=== PATIENT | female | born 1950 | race Caucasian/White ===

== ENCOUNTER 2017-02-25 12:22 | Inpatient (IN) | payer MEDICARE ==
[~2017-02-25] VITALS: Ht 160 cm; Wt 73.0 kg
[~2017-02-25 12:22] MED LIST: ALBU18HF INH; ALLO300T2 PO; AMLO5TAB2 PO; ASCO500C6 PO; ATEN25TA PO; CALC-140 PO; CHOL200047 PO; DICY10CA56 PO; LOVA40TA PO; MAGN400T4 PO; OMEP20CA11 PO; RALO60TA13 PO
[2017-02-25 12:37] VITALS: BP 101/62; PULSE 95; RESP 12; O2SAT 97
--- NOTE | 2017-02-25 12:50 | ED.REPORT ---
HPI-General Illness Date of Service Feb 25, 2017 ED Provider: History of Present Illness: 66yo female with 3 weeks of nausea, intermittent vomitiong/diarrhea, occasional GUERRA and generalized malaise. Occasional fever. She reports she was diagnosed with Novavirus last week at her PCP's office (Dr. Mcconnell in [place]) after stool studies. Treated conservatively. Good PO intake. She is tired of feeling poorly. Nursing Notes Stated Complaint: HEADACHE/FEVER/NAUSEA X 1 WK Chief Complaint: General Complaint Nursing Notes Reviewed: Yes Allergies: Coded Allergies: TAPE (Verified Allergy, Severe, RASH (PAPER OK), 05/15/16) Sulfa (Sulfonamide Antibiotics) (Verified Allergy, Unknown, Rash, 05/15/16) Scheduled Allopurinol (Allopurinol) 300 Mg Tablet 150 MG PO DAILY Amlodipine (Amlodipine) 5 Mg Tablet 5 MG PO DAILY Ascorbic Acid (Vitamin C) 500 Mg Capsule.er 500 MG PO DAILY Atenolol (Atenolol) 25 Mg Tablet 12.5 MG PO DAILY Calcium Carbonate/Vitamin D3 (Calcium + Vitamin D Tablet) 1 Each Tablet 2 EACH PO DAILY Cholecalciferol (Vitamin D3) (Vitamin D3) 2,000 Unit Capsule 6,000 UNIT PO DAILY Dicyclomine (Bentyl) 10 Mg Capsule 10 MG PO TID Lovastatin (Lovastatin) 40 Mg Tablet 40 MG PO DAILY Magnesium Oxide (Magnesium Oxide) 400 Mg Tablet 400 MG PO DAILY Omeprazole (Omeprazole) 20 Mg Capsule.dr 20 MG PO DAILY Raloxifene (Raloxifene) 60 Mg Tablet 60 MG PO DAILY Scheduled PRN Albuterol Sulfate (Ventolin HFA Inhaler) 200 Puff/18 Gm Inhaler 1-2 PUFFS INH Q4H PRN PRN For Wheezing General Time Seen by MD: 12:49 Chief Complaint Fever, Headache, Not feeling well Hx Obtained From: Patient Arrived By: Walk-in Sudden in Onset?: Yes Onset Occurred: More than a week ago... (3 weeks) Symptom Duration: Waxes and wanes Severity: Current: No pain currently Severity: Maximum: No pain Associated with: Reports: Fever, Headache, Nausea, Vomiting, Denies: Abdominal pain Recent Healthcare: Recent doctor visit, Previous diagnosis Similar Sx Previous: No Past Medical History Past Medical History Hyperkalemia frequent episodes of diarrhea Reports: GERD, Hypertension Smoking History Former Smoker Social History Alcohol Use: "Social" Drug Use: Denies drug use Ambulatory Status Independent Review of Systems Full Review of Systems Constitutional: Reports: Fever, Denies: Chills Cardiovascular: Denies: Chest pain GI: Reports: Diarrhea, Nausea, Vomiting, Denies: Abdominal pain Female: Denies: Dysuria Musculoskeletal: Denies: Back pain, Neck pain Neurologic: Reports: Headache Physical Exam Vital Signs Vital Signs Date Time Temp Pulse Resp B/P Pulse Ox O2 Delivery O2 Flow Rate FiO2 02/25/17 19:48 36.0 74 16 130/68 99 Room Air 02/25/17 16:21 36.1 71 16 111/70 95 Room Air 02/25/17 12:37 36.6 95 12 101/62 97 Room Air Initial VS: Vital signs normal General/Constitutional: Awake, Alert, No acute distress, Well hydrated, Not toxic appearing ENT: Mucous membranes moist, Pharynx NL Neck: Supple, No adenopathy Respiratory / Chest: Breath sounds NL, Breath sounds = bilat, No respiratory distress Cardiovascular: Heart rate NL, Regular rhythm, Heart sounds NL Abdomen: Soft, Non-tender, No guarding, No rebound, No distention (to my exam) Interpretation & Diagnostics Lab Results Interpretation Result Diagram: 02/25/17 1340 02/25/17 1340 Test 02/25/17 13:40 02/25/17 15:54 02/25/17 16:21 02/25/17 21:25 White Blood Count 12.7th/mm3 (3.8-10.1) Red Blood Count 3.96mil/mm3 (3.90-5.20) Hemoglobin 12.5g/dL (12.0-15.6) Hematocrit 36.5% (35.0-46.0) Mean Corpuscular Volume 92.2fL (81-100) Mean Corpuscular Hemoglobin 31.6pg (27.0-35.0) Mean Corpuscular Hemoglobin Concent 34.2% (32.0-37.0) Red Cell Distribution Width 13.3% (12.3-15.4) Platelet Count 176bil/L (150-400) Neutrophils (%) (Auto) 82.8% (40-74) Lymphocytes (%) (Auto) 8.2% (14-46) Monocytes (%) (Auto) 8.4% (4-12) Eosinophils (%) (Auto) 0.2% (0-5) Basophils (%) (Auto) 0.2% (0-3) Sodium Level 132mEq/L (134-144) Potassium Level 3.6mEq/L (3.5-5.2) Chloride Level 100mEq/L (97-108) Carbon Dioxide Level 15mmol/L (18-29) Blood Urea Nitrogen 39mg/dL (8-27) Creatinine 1.76mg/dL (0.57-1.00) Estimat Glomerular Filtration Rate 41mL/min (>59) Glucose Level 134mg/dL (60-99) Calcium Level 8.0mg/dL (8.5-10.1) Phosphorus Level 2.3mg/dL (2.5-4.9) Magnesium Level 1.5mg/dL (1.6-2.6) Total Bilirubin 0.7mg/dL (0.0-1.2) Aspartate Amino Transf (AST/SGOT) 40U/L (0-50) Alanine Aminotransferase (ALT/SGPT) 15U/L (0-32) Alkaline Phosphatase 123U/L (25-165) Total Protein 6.9g/dL (6.4-8.4) Albumin 3.3g/dL (3.4-5.0) Procalcitonin 8.05ng/mL (0.00-0.08) Hold Urine Received (Received) Urine Color Yellow (YELLOW) Urine Appearance Hazy (CLEAR,HAZY) Urine pH 5.5 (5.0-8.0) Urine Specific [place] 1.005 (1.003-1.035) Urine Protein 30mg/dL (NEG,TRACE) Urine Glucose (UA) Negativemg/dL (NEGATIVE) Urine Ketones Negativemg/dL (NEGATIVE) Urine Occult Blood Moderate (NEGATIVE) Urine Nitrite Negative (NEGATIVE) Urine Bilirubin Negative (NEGATIVE) Urine Urobilinogen Normalmg/dL (NORMAL) Urine Leukocyte Esterase Small (NEGATIVE) Urine RBC 3-10/hpf (0-2) Urine WBC 6-10/hpf (0-5) Urine Epithelial Cells Moderate/hpf (NONE-MOD) Urine Crystals None seen (NONE SEEN) Urine Bacteria Moderate/hpf (NONE-FEW) Urine Hyaline Casts None/lpf (NONE) Urine Granular Casts None seen (NONE SEEN) Urine Waxy Casts None seen (NONE SEEN) Urine Red Blood Cell Casts None seen (NONE SEEN) Urine White Blood Cell Casts None seen (NONE SEEN) Urine Mucus None seen (None Seen) Urine Trichomonas None seen (NONE SEEN) Urine Yeast None (NONE SEEN) Urinalysis Comment None Urine Culture Reflexed Indicated Lactic Acid Level 1.0mmol/L (0.4-2.0) CT Abd / Pelvis Interpretation PROCEDURE: CT ABDOMEN AND PELVIS WITHOUT CONTRAST ([id number]) INDICATIONS: r/o ischemic bowel. TECHNIQUE: Noncontrast 5 mm thick sections acquired from the diaphragms to the symphysis. 5 mm coronal and sagittal reformats were then performed. For radiation dose reduction, the following was used: automated exposure control, adjustment of mA and/or kV according to patient size. COMPARISON: [facility], CT, ABDOMEN/PELVIS WITH CONTRAST, 07/05/2016, 13:16. FINDINGS: Image quality: Somewhat limited by absence of oral and intravenous contrast. ABDOMEN: Lung bases: Lung bases are clear. Heart size is normal. Solid organs: Liver and spleen are normal in size of the liver margins appear slightly nodular, potentially a manifestation of early cirrhosis. There is perihepatic ascites, mild to in severity. Gallbladder has a small amount of adjacent free fluid. Pancreas is normal in contours. No adrenal nodules. Kidneys are normal in size, without hydronephrosis or nephrolithiasis. Peritoneum and bowel: Unenhanced bowel loops demonstrate normal wall thickness and caliber. No free fluid or air. Nodes and vessels: No retroperitoneal or mesenteric adenopathy by size criteria. Aorta and inferior vena cava are normal in caliber. Miscellaneous: No ventral hernias. PELVIS: Genitourinary: Bladder wall thickness is normal. Miscellaneous: No inguinal hernias or adenopathy. Mild ascites is seen deep within the pelvis. No varices are found. Bones: No suspicious bony lesions. No vertebral body compression fractures. IMPRESSION: There is no bowel wall thickening or evidence of pneumatosis, no sign of intestinal obstruction or perforation. Note is made of a mild to moderate degree of ascites within the peritoneal space but no free air. Cirrhosis may be present as cause of subtle nodularity along the hepatic capsule or margin. Note is made of a small amount of free fluid within the gallbladder fossa, but the gallbladder itself does not appear definitely inflamed. No calcified gallstones are seen. There is a previously present cyst exophytic from the middle third of the left kidney posterolateral cortex, measuring 1.5 cm in dimension and measuring higher than water in density. This structure was previously present and appears even slightly smaller than on the prior examination. It could be further assessed by ultrasound when symptoms have improved. It likely is a proteinaceous cyst given its radiodensity and diminished size over time. Dictated by: Steven Hernández M.D. on 02/25/2017 at 20:15 Approved by: Steven Hernández M.D. on 02/25/2017 at 20:20 Re-Eval/Medical Decision Med Decision/Clinical Course Pt. discussed with Dr. Root who advised [place] lab results to confirm Norovirus dx. and then consult with Dr. Merchant. Lab results received, confirming Norovirus on 02/15. Dr. Merchant advises stool PCR and abdominal CT. CT showed ascites. case discussed with Dr. Christopher who advised admission for diarrhea, ascites, and dehydration. Dr. Alina Pickard accepted Pt. to her service Counseled Regarding: Diagnosis, Lab results, Need for admission Discharge & Departure Primary Impression: Diarrhea Diarrhea type: unspecified type Qualified Code: R19.7 - Diarrhea, unspecified Additional Impressions: Ascites Ascites type: other type Qualified Code: R18.8 - Other ascites Dehydration Disposition: ADMITTED TO HOSPITAL Referrals: Saadia Rizo DO (PCP) EDSupervising Provider for APC: Toby Christopher MD Attending Statement Case was discussed in detail and I personally examined this patient. Agree with above. Oral Gandara Feb 25, 2017 12:50 Toby Christopher MD Feb 25, 2017 23:18
[2017-02-25] MEDS ORDERED: Ondansetron 2 mg/mL 2 mL Inj IVPUSH ONE (12:55)
[2017-02-25] MEDS ORDERED: 0.9% Sodium Chloride 1,000 ML IV SCH ×2 (12:55→14:55)
[2017-02-25 13:53] LABS: BASOPHILS % (AUTO) 0.2 % (0-3); EOSINOPHILS % (AUTO) 0.2 % (0-5); MONOCYTES % (AUTO) 8.4 % (4-12); Mean Corpuscular Hemoglobin 31.6 pg (27.0-35.0); Mean Corpuscular Volume 92.2 fL (81-100); NEUTROPHILS % (AUTO) 82.8 % (40-74); Platelet Count 176 bil/L (150-400)
[2017-02-25 16:21] VITALS: BP 111/70; PULSE 71; RESP 16; O2SAT 95
[2017-02-25 16:38] LABS: APPEARANCE,URINE HAZY (CLEAR,HAZY); COLOR,URINE YELLOW (YELLOW); OCCULT BLOOD,URINE MODERATE (NEGATIVE); PH,URINE 5.5 (5.0-8.0); UROBILINOGEN,URINE NORMAL (NORMAL)
[2017-02-25 19:48] VITALS: BP 130/68; PULSE 74; RESP 16; O2SAT 99
--- NOTE | 2017-02-25 20:21 | DRSVH ---
PROCEDURE: CT ABDOMEN AND PELVIS WITHOUT CONTRAST ([id number]) INDICATIONS: r/o ischemic bowel. TECHNIQUE: Noncontrast 5 mm thick sections acquired from the diaphragms to the symphysis. 5 mm coronal and sagi ttal reformats were then performed. For radiation dose reduction, the following was used: automated exposure control, adjustment of mA and/or kV according to patient size. COMPARISON: [facility], CT, ABDOMEN/PELVIS WITH CONTRAST, 07/05/2016, 13:16. FINDINGS: Image quality: Somewhat limited by absence of oral and intravenous contrast. ABDOMEN: Lung bases: Lung bases are clear. Heart size is normal. Solid organs: Liver and spleen are normal in size of the liver margins appear slightly nodular, pote ntially a manifestation of early cirrhosis. There is perihepatic ascites, mild to in severity. Gall bladder has a small amount of adjacent free fluid. Pancreas is normal in contours. No adrenal nodul es. Kidneys are normal in size, without hydronephrosis or nephrolithiasis. Peritoneum and bowel: Unenhanced bowel loops demonstrate normal wall thickness and caliber. No free fluid or air. Nodes and vessels: No retroperitoneal or mesenteric adenopathy by size criteria. Aorta and inferior vena cava are normal in caliber. Miscellaneous: No ventral hernias. PELVIS: Genitourinary: Bladder wall thickness is normal. Miscellaneous: No inguinal hernias or adenopathy. Mild ascites is seen deep within the pelvis. No varices are found. Bones: No suspicious bony lesions. No vertebral body compression fractures. IMPRESSION: There is no bowel wall thickening or evidence of pneumatosis, no sign of intestinal obst ruction or perforation. Note is made of a mild to moderate degree of ascites within the peritoneal s pace but no free air. Cirrhosis may be present as cause of subtle nodularity along the hepatic capsu le or margin. Note is made of a small amount of free fluid within the gallbladder fossa, but the gallbladder itself does not appear definitely inflamed. No calcified gallstones are seen. There is a previously present cyst exophytic from the middle third of the left kidney posterolateral cortex, measuring 1.5 cm in dimension and measuring higher than water in density. This structure was previously present and appears even slightly smaller than on the prior examination. It could be fur ther assessed by ultrasound when symptoms have improved. It likely is a proteinaceous cyst given its radiodensity and diminished size over time. Dictated by: Steven Hernández M.D. on 02/25/2017 at 20:15 Approved by: Steven Hernández M.D. on 02/25/2017 at 20:20
--- NOTE | 2017-02-25 21:36 | PCM.HPMED ---
Subjective Date of Service Feb 25, 2017 Primary Provider: Admitting Physician: Alina Pickard DO Primary Care Physician: Saadia Rizo DO Attending Physician: Alina Pickard DO Admit Status: From the Emergency Department Chief Complaint: Diarrhea onset February 01. Nausea, vomiting, headaches, fever onset 5 days ago History of Present Illness: She is a pleasant 66y/o F with history of watery clear diarrhea onset February 01 that has persisted till now although reportedly slowing somewhat, with associated intermittent fevers, ache, nausea, and vomitiong clear fluid onset 5 days ago. Patient states that she last vomited about 2 days ago. She states she started spiking fevers around Tuesday of this week and reports 102 fever intermittently since then. The last meal she had was Tuesday consisting of [place] noodles which she was unable to tolerate area and she states she is able to tolerate water only when taken in small amounts. Associated symptoms include chills for the last couple days and rigors, as well as body aches. Patient was diagnosed by her PCP Dr. Mcconnell with [place] virus and this was confirmed by the [facility] labs. Patient states that she is feeling somewhat better since Tuesday of this week however her diarrhea and he needs to cause her distress. She she complains of a raw burning sensation of the rectum from the endless diarrhea. Of note patient has a history of 8 months of diarrhea however that was attributed to her magnesium supplementation which was stopped. After that her diarrhea had resolved. Patient states she no longer takes magnesium. Patient is a retired [employer] employee and lives alone with no family other than an estranged sister who she has no contact with. In the ED patient received 1 L bolus of saline, and maintenance fluids at 250 mL per hour with improvement in patient's blood pressure. Abdominopelvic CT with contrast showed: No bowel wall thickening or evidence of pneumatosis, no sign of intestinal obstruction or perforation. Mild to moderate degree of ascites within the peritoneal space but no free air. Cirrhosis may be present as cause of subtle nodularity along the hepatic capsule or margin. Note is made of a small amount of free fluid within the gallbladder fossa, but the gallbladder itself does not appear definitely inflamed. No calcified gallstones are seen. Stool PCR ordered and pending Initial Vital signs: temperature 36.6, pulse 95, respiratory rate 12, blood pressure 101/62, 97% on room air. Hemogram was significant for a leukocytosis with WBC 12.7, PMNs 82.8%, lymphs 8.2 percent, H/H was 12.5/36.5. Chemistry panel significant for hyponatremia at 132, CO2 15, BUN 39, creatinine 1.76, glucose 134, calcium 8.0, UA was significant for moderate bacteria and 6-10 white blood cells Urine culture pending Review of Systems: A comprehensive review of systems was conducted and was negative except as mentioned in history of present illness. Allergies Coded Allergies: TAPE (Verified Allergy, Severe, RASH (PAPER [place]), 05/15/16) Sulfa (Sulfonamide Antibiotics) (Verified Allergy, Unknown, Rash, 05/15/16) Home Medications Allopurinol (Allopurinol) 300 Mg Tablet 150 MG PO DAILY Amlodipine (Amlodipine) 5 Mg Tablet 5 MG PO DAILY Atenolol (Atenolol) 25 Mg Tablet 12.5 MG PO DAILY Lovastatin (Lovastatin) 40 Mg Tablet 40 MG PO DAILY Prolia PRN Albuterol Sulfate (Ventolin HFA Inhaler) 200 Puff/18 Gm Inhaler 1-2 PUFFS INH Q4H PRN PRN For Wheezing PMH History of Hyperkalemia History of frequent episodes of diarrhea lasted 8 months, and was found to be secondary to supplemental magnesium. Patient's magnesium was stopped and the diarrhea ceased. GERD, resolved Hypertension Gout Osteoporosis on Prolia Dyslipidemia Surgical History Denies surgical history Family History Mother with hypertension, diabetes, and stroke. Sister with history of diabetes Social History Hx Alcohol Use: No Hx Substance Use: No Hx Tobacco Use: No Smoking Status: Former Smoker (smoked half a pack a day for approximately 50 years) Living Arrangement: Alone Exam Vital Signs Vital Sign - Last Date Time Temp Pulse Resp B/P Pulse Ox O2 Delivery O2 Flow Rate FiO2 02/25/17 19:48 36.0 74 16 130/68 99 Room Air Exam General: Alert and oriented 3, in no apparent distress, requesting something to slow down her diarrhea, beginning in full sentences, HEENT: NC/AT, eyes, PERRLA, EOMI, neck, soft supple, no adenopathy, no JVD, no masses, no thyromegaly, throat mucous membranes pink and moist, no erythema, no exudates, no tonsillar swelling, no uvular deviation, tongue stained with dark brown substance. Lungs: CTAB all estes, no wheezes, no rhonchi, no crackles, no adventitious lung sounds, no use of accessory muscles of respiration, good air movement, good respiratory effort. Heart: Regular rate and rhythm, no murmur, S1-S2 present, no rub, no click, no distant heart sounds, GI: Soft, nontender, nondistended, bowel sounds active, no rebound, no guarding, Genitourinary: No CVA tenderness, no suprapubic tenderness, no Guo catheter Extremities: Pulses equal and symmetric upper extremity radial, no edema Neurologic: Grossly neurologically intact, speaking in full sentences, no focal neurological signs. Skin: Nondiaphoretic, dry, mild tenting present, refill less than 2 seconds Psychiatric: mood and affect are congruent and appropriate. Lymph: no cervical or supraclavicular lymphadenopathy Lab and Diagnostics Result Diagram: 02/25/17 1340 02/25/17 1340 X-Rays, CTs and MRIs Date of Service: 02/25/171918 PROCEDURE: CT ABDOMEN AND PELVIS WITHOUT CONTRAST INDICATIONS: r/o ischemic bowel. FINDINGS: Image quality: Somewhat limited by absence of oral and intravenous contrast. ABDOMEN: Lung bases: Lung bases are clear. Heart size is normal. Solid organs: Liver and spleen are normal in size of the liver margins appear slightly nodular, potentially a manifestation of early cirrhosis. There is perihepatic ascites, mild to in severity. Gallbladder has a small amount of adjacent free fluid. Pancreas is normal in contours. No adrenal nodules. Kidneys are normal in size, without hydronephrosis or nephrolithiasis. Peritoneum and bowel: Unenhanced bowel loops demonstrate normal wall thickness and caliber. No free fluid or air. Nodes and vessels: No retroperitoneal or mesenteric adenopathy by size criteria. Aorta and inferior vena cava are normal in caliber. Miscellaneous: No ventral hernias. PELVIS: Genitourinary: Bladder wall thickness is normal. Miscellaneous: No inguinal hernias or adenopathy. Mild ascites is seen deep within the pelvis. No varices are found. Bones: No suspicious bony lesions. No vertebral body compression fractures. IMPRESSION: There is no bowel wall thickening or evidence of pneumatosis, no sign of intestinal obstruction or perforation. Note is made of a mild to moderate degree of ascites within the peritoneal space but no free air. Cirrhosis may be present as cause of subtle nodularity along the hepatic capsule or margin. Note is made of a small amount of free fluid within the gallbladder fossa, but the gallbladder itself does not appear definitely inflamed. No calcified gallstones are seen. There is a previously present cyst exophytic from the middle third of the left kidney posterolateral cortex, measuring 1.5 cm in dimension and measuring higher than water in density. This structure was previously present and appears even slightly smaller than on the prior examination. It could be further assessed by ultrasound when symptoms have improved. It likely is a proteinaceous cyst given its radiodensity and diminished size over time. Dictated by: Steven Hernández M.D. on 02/25/2017 at 20:15 Approved by: Steven Hernández M.D. on 02/25/2017 at 20:20 Assessment & Plan This is a pleasant 66-year-old female with past medical history of hypertension , hyperlipidemia, and gout who presented to the ED with 1 month history of persistent watery diarrhea, and now one-week history of fevers, chills, rigors, nausea and vomiting clear fluid. Patient tested positive for [place] and was treated conservatively by her PCP. Patient was admitted to the hospital secondary to dehydration and persistent diarrhea. #Acute viral enteritis, present on admission, active -[place] virus confirmed by [facility] lab -Initial Vital signs: temperature 36.6, pulse 95, respiratory rate 12, blood pressure 101/62, 97% on room air. -leukocytosis with WBC 12.7, PMNs 82.8%, lymphs 8.2 percent, H/H was 12.5/36.5. -She states she was diagnosed with [place] virus in her PCPs clinic -Infectious disease consulted by the ED, [facility] aware of the patient and recommend stool PCR, and abdominal CT's contrast. -Abdominal pelvic CT with contrast with no evidence of bowel ischemia or perforation. Left kidney exophytic cyst previously seen on prior CT (reviewed on admission by admitting team). -Stool PCR ordered and pending -We will continue IV replacement fluids normal saline started and ED and monitor electrolytes appropriately. -We will order a stool C. difficile -MRSA screen -Pro calcitonin -Enteric precautions -We will wait to start antibiotics given likely viral source -We will avoid antimotility agents for now given patient reports she has been febrile, and out of concern that this may lengthen the infectious disease process -Racecadotril, an enkephalinase inhibitor used to treat diarrhea is not available on hospital formulary per pharmacy. Will hold of pursuing a medication such as this until further workup is completed #Acute kidney injury, present on admission, active - Creatinine elevated at 1.76 - Baseline creatinine 1.27 in April 2016 #Sepsis, acutem POA -WBC>12, HR >90 -secondary to gastroenteritis and dehydration -treatment as above # Dehydration, present on admission, active -Secondary to problem #1 above - Patient received 2 L of normal saline in the ED - We will continue to provide maintenance fluids normal saline at 100 mL per hour # Acute leukocytosis, present on admission, active -Wbc's 12.7 with left shift -Infectious disease Dr. [facility] has been consulted on this patient -UA was significant for moderate bacteria and 6-10 white blood cells -Urine culture pending # Moderate abdominal ascites, present remission, active -Seen on CT abdomen and pelvis with contrast -Possibly secondary to liver cirrhosis given nodularity seen on CT of the liver # Hyponatremia, present on admission, active - Sodium 132 -She received 1 L IV bolus of normal saline in the ED with additional fluids given at a rate of 250 mls per hour for a total of 2 L. #Hyperglycemia, present remission, active -Glucose 134 -We will obtain hemoglobin A1c # Left kidney exophytic cyst, present on admission, - Decreased in size compared to prior CT abdomen and pelvis # Abdominal ascites, present on admission, active - As seen on CT abdomen and pelvis, possible nodular liver cannot rule out liver cirrhosis - LFTs are within normal limits - Patient does take allopurinol which is hepatotoxic Chronic problems # History of Hyperkalemia - Potassium 3.6 - Continue to monitor this given her current acute persistent diarrhea #History of frequent episodes of diarrhea lasted 8 months, - Secondary to supplement her magnesium now stopped #GERD, resolved #Hypertension -We will continue home medication amlodipine 5 mg daily -We will continue home medication of atenolol 12.5 mg daily #Gout, presumed stable - We will hold medication allopurinol now secondary to risk of worsening diarrhea, as well as secondary to possible liver cirrhosis as seen on CT #Osteoporosis, presumed stable - on Prolia #Hyperlipidemia presumed stable - On medication lovastatin 40 mg daily Disposition: Admitted to in patient service with expected length of stay greater than 2 days, secondary to severity of presenting symptoms, treatment plan, complexity of clinical work up, and risk of adverse events. CODE STATUS: Full code PCP: Dr. Petersen [facility] DVT PE prophylaxis SubQ heparin Q8H Contact: No family contacts VTE Prophylaxis: Sub-Q Heparin (Unfractionated) Resuscitation Status: CPR: Attempt Resuscitation Attending Statement The patient was seen and examined together with house staff on 02/25/2017 and I agree with the history, exam and plan as outlined in the note above. Laci Dumas DO Feb 25, 2017 21:36 Alina Pickard DO Feb 26, 2017 03:15
[2017-02-25] MEDS ORDERED: Polyethylene Glycol (PEG) 17 Gm Powder PO PRN (22:00)
[2017-02-25] MEDS: Lactated Ringer's 1,000 ML IV SCH (22:07)
[2017-02-25] MEDS ORDERED: Ondansetron 2 mg/mL 2 mL Inj IVPUSH PRN (22:10)
[2017-02-25 22:42] LABS: Magnesium 1.5 mg/dL (1.6-2.6); Phosphorus 2.3 mg/dL (2.5-4.9)
[2017-02-25 22:51] VITALS: BP 135/70; PULSE 80; RESP 16; O2SAT 99
--- NOTE | 2017-02-25 23:00 | NUR ---
Admission to [facility] Room 1020 Pt arrived to Room 1020 at approximately 2300 on a gurney and was able to transfer self from the gurney to the bed with a steady gait and no c/o dizziness or lightheadedness. Pt is AOx3 and ARTEAGA upon arrival. Pt's room was already set up for contact enteric precautions prior to pt's arrival. Upon arrival [facility] called to inform me that pt is norovirus positive.
[2017-02-25 23:03] VITALS: BP 111/66; PULSE 78; RESP 18; O2SAT 98
[2017-02-25] MEDS ORDERED: DENO60DI SQ (23:45)
[2017-02-26] MEDS ORDERED: Albuterol 2.5 mg/3 mL Inhalation Solution NEB PRN (01:11)
[2017-02-26] MEDS: Sodium Chloride LOK Flush 10 mL Syringe IVFLUSH SCH ×4 (02:00→23:47)
[2017-02-26] MEDS: Heparin 5,000 Unit/mL Inj SUBQ SCH ×4 (02:00→23:50)
[2017-02-26] MEDS: 0.9% Sodium Chloride 1,000 ML IV SCH ×4 (02:00→23:47)
[2017-02-26 02:15] VITALS: BP 103/69; PULSE 83; RESP 16; O2SAT 97
[2017-02-26] MEDS: Lactated Ringer's 1,000 ML IV SCH ×3 (03:07→13:07)
[2017-02-26] MEDS ORDERED: Acetaminophen IV 1,000 MG in IV Premix 1 EACH IV ONE (05:20)
[2017-02-26 06:41] VITALS: BP 103/71; PULSE 82; RESP 16; O2SAT 98
[2017-02-26 06:45] LABS: BASOPHILS % (AUTO) 0.2 % (0-3); MONOCYTES % (AUTO) 8.5 % (4-12); Mean Corpuscular Hemoglobin 31.4 pg (27.0-35.0); Mean Corpuscular Volume 93.4 fL (81-100); NEUTROPHILS % (AUTO) 73.9 % (40-74); Platelet Count 219 bil/L (150-400)
[2017-02-26 08:20] VITALS: BP 121/68; PULSE 82; RESP 18; O2SAT 99
--- NOTE | 2017-02-26 09:23 | PCM.PNMED ---
Subjective Date of Service Feb 26, 2017 Subjective Had abdominal cramping earlier this morning followed by two "explosive" bowel movements, including some incontinence on the floor. Abdominal pain then resolved. No nausea. Exam Vital Signs Vital Sign - Last Date Time Temp Pulse Resp B/P Pulse Ox O2 Delivery O2 Flow Rate FiO2 02/26/17 08:20 36.6 82 18 121/68 99 Room Air Intake and Output 02/25/17 02/25/17 02/26/17 Cumulative From/Thru 15:00 23:00 07:00 02/25/17 12:37 - 02/26/17 06:50 Intake Total 2000 ml 600 ml 2600 ml Output Total 575 ml 575 ml Balance 2000 ml 25 ml 2025 ml Intake Oral 600 ml 600 ml IV Total 2000 ml 2000 ml Output Urine Total 200 ml 200 ml Stool Total 375 ml 375 ml # Bowel Movements 4 4 Exam General: Alert and oriented, no acute distress Heart: Regular Lungs: Clear Abdomen: Soft, non-tender, bowel tones present Extremities: No pedal edema IVs and Medications Medications Reviewed: Medications were reviewed in detail Lab and Diagnostics Result Diagram: 02/26/17 0554 02/26/17 0554 X-Rays, CTs and MRIs Date of Service: 02/25/171918 PROCEDURE: CT ABDOMEN AND PELVIS WITHOUT CONTRAST INDICATIONS: r/o ischemic bowel. FINDINGS: Image quality: Somewhat limited by absence of oral and intravenous contrast. ABDOMEN: Lung bases: Lung bases are clear. Heart size is normal. Solid organs: Liver and spleen are normal in size of the liver margins appear slightly nodular, potentially a manifestation of early cirrhosis. There is perihepatic ascites, mild to in severity. Gallbladder has a small amount of adjacent free fluid. Pancreas is normal in contours. No adrenal nodules. Kidneys are normal in size, without hydronephrosis or nephrolithiasis. Peritoneum and bowel: Unenhanced bowel loops demonstrate normal wall thickness and caliber. No free fluid or air. Nodes and vessels: No retroperitoneal or mesenteric adenopathy by size criteria. Aorta and inferior vena cava are normal in caliber. Miscellaneous: No ventral hernias. PELVIS: Genitourinary: Bladder wall thickness is normal. Miscellaneous: No inguinal hernias or adenopathy. Mild ascites is seen deep within the pelvis. No varices are found. Bones: No suspicious bony lesions. No vertebral body compression fractures. IMPRESSION: There is no bowel wall thickening or evidence of pneumatosis, no sign of intestinal obstruction or perforation. Note is made of a mild to moderate degree of ascites within the peritoneal space but no free air. Cirrhosis may be present as cause of subtle nodularity along the hepatic capsule or margin. Note is made of a small amount of free fluid within the gallbladder fossa, but the gallbladder itself does not appear definitely inflamed. No calcified gallstones are seen. There is a previously present cyst exophytic from the middle third of the left kidney posterolateral cortex, measuring 1.5 cm in dimension and measuring higher than water in density. This structure was previously present and appears even slightly smaller than on the prior examination. It could be further assessed by ultrasound when symptoms have improved. It likely is a proteinaceous cyst given its radiodensity and diminished size over time. Dictated by: Steven Hernández M.D. on 02/25/2017 at 20:15 Approved by: Steven Hernández M.D. on 02/25/2017 at 20:20 Assessment & Plan This is a pleasant 66-year-old female with past medical history of hypertension , hyperlipidemia, and gout who presented to the ED with 1 month history of persistent watery diarrhea, and now one-week history of fevers, chills, rigors, nausea and vomiting clear fluid. Patient tested positive for [place] and was treated conservatively by her PCP. Patient was admitted to the hospital secondary to dehydration and persistent diarrhea. #Acute viral enteritis, present on admission, active -[place] virus confirmed by [place] lab and by Stool PCR here -stool C. difficile negative -leukocytosis with WBC 12.7, PMNs 82.8%, lymphs 8.2 percent on admit, 13.8 this am -Infectious disease consulted by the ED, [facility] aware of the patient and recommend stool PCR, and abdominal CT's contrast. -Abdominal pelvic CT with contrast with no evidence of bowel ischemia or perforation. Left kidney exophytic cyst previously seen on prior CT (reviewed on admission by admitting team). -We will continue IV replacement fluids with normal saline, currently at 125/hr -MRSA screen pending -Pro calcitonin elevated at 8.05 -Enteric precautions -No antibiotics for this given likely viral source (but also has UTI, see below) -We will avoid antimotility agents for now given patient reports she has been febrile, and out of concern that this may lengthen the infectious disease process -Racecadotril, an enkephalinase inhibitor used to treat diarrhea is not available on hospital formulary per pharmacy. Will hold of pursuing a medication such as this until further workup is completed #Acute kidney injury, present on admission, active - Creatinine elevated at 1.76 on admission, 1.5 this morning - Baseline creatinine 1.27 in April 2016 #Sepsis, acute POA -WBC>12, HR >90 -secondary to gastroenteritis and dehydration, but also UTI -treatment as above # UTI - UA with 6-10 WBCs - Urine culture with greater than 100,000 gram-negative bacilli, probably Escherichia coli - We will start IV ceftriaxone - addendum at 1400: 1 of 2 blood cultures (1 of 4 bottles) has become positive for a GNB # Dehydration, present on admission, active -Secondary to problem #1 above - Patient received 2 L of normal saline in the ED - We will continue to provide maintenance fluids normal saline at 125 mL per hour # Moderate abdominal ascites, present on admission, active -Seen on CT abdomen and pelvis with contrast -Possibly secondary to liver cirrhosis given nodularity seen on CT of the liver -Reports only occasional alcohol use - LFTs are within normal limits # Hyponatremia, present on admission, active - Sodium 132 on admission, improved to 138 this morning after IV fluids with normal saline #Hyperglycemia, present on admission, active -Glucose 134 on admission, 111 this morning -We will obtain hemoglobin A1c, still pending # Left kidney exophytic cyst, present on admission, - Decreased in size compared to prior CT abdomen and pelvis Chronic problems # History of Hyperkalemia - Potassium 3.6 - Continue to monitor this given her current acute persistent diarrhea #History of frequent episodes of diarrhea lasted 8 months, - Secondary to supplement her magnesium now stopped #GERD, resolved #Hypertension -We will continue home medication amlodipine 5 mg daily -We will continue home medication of atenolol 12.5 mg daily #Gout, presumed stable - We will hold medication allopurinol now secondary to risk of worsening diarrhea, as well as secondary to possible liver cirrhosis as seen on CT #Osteoporosis, presumed stable - on Prolia #Hyperlipidemia presumed stable - On medication lovastatin 40 mg daily Disposition: Admitted to in patient service with expected length of stay greater than 2 days, secondary to severity of presenting symptoms, treatment plan, complexity of clinical work up, and risk of adverse events. CODE STATUS: Full code PCP: Dr. Pool of [place] DVT PE prophylaxis SubQ heparin Q8H Contact: No family contacts VTE Prophylaxis: Sub-Q Heparin (Unfractionated) VTE Mechanical Devices: Intermittant Pneumatic CD Resuscitation Status: CPR: Attempt Resuscitation Cornelia Vaughan MD Feb 26, 2017 09:23 Cornelia Vaughan MD Feb 26, 2017 09:23
[2017-02-26] MEDS: cefTRIAXone Inj 1,000 MG in Dextrose 5% Minibag Plus 50 ML IV SCH (10:14)
[2017-02-26] MEDS: Alum-Mag Hydrox-Simeth 30 mL Suspension PO PRN ×2 (12:15→20:26)
[2017-02-26 13:03] VITALS: BP 103/63; PULSE 75; RESP 18; O2SAT 99
--- NOTE | 2017-02-26 15:37 | NUR ---
Social Work: Initial Assessment D: EMR reviewed. Pt is 66 y/o female a admitted for diarrhea abscises per H&P. JUAN LUIS met with pt at bedside to conduct initial assessment. Pt was alert and oriented x3. SW explained role and wrote phone number on white board. Pt's insurance is [employer] and PCP is Saadia Rizo DO. Pt gave verbal consent to contact friend, Cortney Webber, for discharge planning. JUAN LUIS confirmed pt has completed DPOA/advanced directive ppw and encouraged pt to provide a copy to the hospital. Pt has no hx of HH or a SNF. Pt does not have LTC insurance or VA benefits. Pt is independent with ADLs. Pt does not use any DME. Pt drives. Pt is independent at baseline. Pt lives alone in a single-story home with 2 steps to enter in [place]. Pt states she will drive her self home via POV or her friend Cortney will provide transport when pt is medically stable and ready to discharge. JUAN LUIS does not anticipate any discharge needs at this time but will continue to follow if needs arise. A: Pt who is independent at baseline P: Pt states she will drive her self home via POV or her friend Cortney will provide transport when pt is medically stable and ready to discharge. JUAN LUIS does not anticipate any discharge needs at this time but will continue to follow if needs arise. KATY Cates Addendum: 02/26/17 at 1540 by VINCENT HULL SS Amended: Links added.
--- NOTE | 2017-02-26 17:13 | NUR ---
Diarrhea patient has been having multiple episodes of watery diarrhea throughout the day. small-med in size. denies N/V or lightheadedness. reports occasional abdominal cramping relieved with BM. reports that anal area is red, raw and painful from multiple stools. barrier wipes given to patient to use after each loose stool. tolerating clear liquid diet. continue to monitor.
[2017-02-26 19:30] VITALS: BP 105/70; PULSE 81; RESP 18; O2SAT 97
[2017-02-27] VITALS (7 sets, daily range): BP systolic 106–125; BP diastolic 65–73; PULSE 62–81; RESP 16–20; O2SAT 96–98
--- NOTE | 2017-02-27 04:45 | NUR ---
GI Intermittent cramping with gas pains overnight. several liq stools. K-pad provided to abdomen for comfort. Denies nausea. Endorses fatigue.
[2017-02-27 06:42] LABS: Mean Corpuscular Hemoglobin 31.2 pg (27.0-35.0); Mean Corpuscular Volume 92.6 fL (81-100)
[2017-02-27] MEDS: 0.9% Sodium Chloride 1,000 ML IV SCH (07:49)
[2017-02-27] MEDS: Heparin 5,000 Unit/mL Inj SUBQ SCH ×2 (07:50→16:06)
[2017-02-27] MEDS: Sodium Chloride LOK Flush 10 mL Syringe IVFLUSH SCH ×3 (07:51→23:39)
--- NOTE | 2017-02-27 09:10 | PCM.PNMED ---
Subjective Date of Service Feb 27, 2017 Subjective Abdomen cramping seems less, that she would mostly call it gas pains now. Says the diarrhea seems to have slowed but says she has had 6 bowel movements since midnight but they just seem to be smaller volume. However the nursing staff have recorded 900 mL of stool since midnight. Exam Vital Signs Vital Sign - Last Date Time Temp Pulse Resp B/P Pulse Ox O2 Delivery O2 Flow Rate FiO2 02/27/17 07:59 36.5 73 16 106/69 96 Room Air Intake and Output 02/26/17 02/26/17 02/27/17 Cumulative From/Thru 15:00 23:00 07:00 02/25/17 12:37 - 02/27/17 05:30 Intake Total 2191 ml 1944 ml 6735 ml Output Total 900 ml 1150 ml 2625 ml Balance 1291 ml 794 ml 4110 ml Intake Oral 757 ml 520 ml 1877 ml IV Total 1434 ml 1424 ml 4858 ml Output Urine Total 600 ml 250 ml 1050 ml Stool Total 300 ml 900 ml 1575 ml # Bowel Movements 1 1 6 Exam General: Alert and oriented, no acute distress Heart: Regular Lungs: Some initial basilar crackles clear with deep breaths Abdomen: Soft, non-tender, bowel tones active Extremities: No pedal edema IVs and Medications Medications Reviewed: Medications were reviewed in detail Lab and Diagnostics Result Diagram: 02/27/1762602/27/17626 X-Rays, CTs and MRIs Date of Service: 02/25/171918 PROCEDURE: CT ABDOMEN AND PELVIS WITHOUT CONTRAST INDICATIONS: r/o ischemic bowel. FINDINGS: Image quality: Somewhat limited by absence of oral and intravenous contrast. ABDOMEN: Lung bases: Lung bases are clear. Heart size is normal. Solid organs: Liver and spleen are normal in size of the liver margins appear slightly nodular, potentially a manifestation of early cirrhosis. There is perihepatic ascites, mild to in severity. Gallbladder has a small amount of adjacent free fluid. Pancreas is normal in contours. No adrenal nodules. Kidneys are normal in size, without hydronephrosis or nephrolithiasis. Peritoneum and bowel: Unenhanced bowel loops demonstrate normal wall thickness and caliber. No free fluid or air. Nodes and vessels: No retroperitoneal or mesenteric adenopathy by size criteria. Aorta and inferior vena cava are normal in caliber. Miscellaneous: No ventral hernias. PELVIS: Genitourinary: Bladder wall thickness is normal. Miscellaneous: No inguinal hernias or adenopathy. Mild ascites is seen deep within the pelvis. No varices are found. Bones: No suspicious bony lesions. No vertebral body compression fractures. IMPRESSION: There is no bowel wall thickening or evidence of pneumatosis, no sign of intestinal obstruction or perforation. Note is made of a mild to moderate degree of ascites within the peritoneal space but no free air. Cirrhosis may be present as cause of subtle nodularity along the hepatic capsule or margin. Note is made of a small amount of free fluid within the gallbladder fossa, but the gallbladder itself does not appear definitely inflamed. No calcified gallstones are seen. There is a previously present cyst exophytic from the middle third of the left kidney posterolateral cortex, measuring 1.5 cm in dimension and measuring higher than water in density. This structure was previously present and appears even slightly smaller than on the prior examination. It could be further assessed by ultrasound when symptoms have improved. It likely is a proteinaceous cyst given its radiodensity and diminished size over time. Dictated by: Steven Hernández M.D. on 02/25/2017 at 20:15 Approved by: Steven Hernández M.D. on 02/25/2017 at 20:20 Assessment & Plan This is a pleasant 66-year-old female with past medical history of hypertension , hyperlipidemia, and gout who presented to the ED with 1 month history of persistent watery diarrhea, and now one-week history of fevers, chills, rigors, nausea and vomiting clear fluid. Patient tested positive for [place] and was treated conservatively by her PCP. Patient was admitted to the hospital secondary to dehydration and persistent diarrhea. #Acute viral enteritis, present on admission, active -[place] virus confirmed by [facility] and by Stool PCR here -stool C. difficile negative -leukocytosis with WBC 12.7, PMNs 82.8%, lymphs 8.2 percent on admit, 7.9 this am -Infectious disease consulted by the ED, Merchant aware of the patient and recommended stool PCR, and abdominal CT's contrast. -Abdominal pelvic CT with contrast with no evidence of bowel ischemia or perforation. Left kidney exophytic cyst previously seen on prior CT (reviewed on admission by admitting team). -We will continue IV replacement fluids with normal saline, currently at 125/hr -MRSA screen pending -Pro calcitonin elevated at 8.05 -Enteric precautions -No antibiotics for this given likely viral source (but also has UTI, see below) -We will avoid antimotility agents for now given patient reports she has been febrile, and out of concern that this may lengthen the infectious disease process -Diarrhea still persistent and severe (with electrolyte abnormalities), will consult GI, discussed with Dr Pierce on phone # Ecoli UTI with bacteremia - UA with 6-10 WBCs - Urine culture Escherichia coli, sens to all - 1 of 2 blood cultures (1 of 4 bottles) positive for a GNB - prob Ecoli - IV ceftriaxone started February 26 #Sepsis, acute POA -WBC>12, HR >90 -on admit felt secondary to gastroenteritis and dehydration, but now also UTI with bacteremia -treatment as above #Acute kidney injury, present on admission, improved. Presumed due to volume depletion - Creatinine elevated at 1.76 on admission, 1.5 next day and 1.16 this am - Baseline creatinine 1.27 in April 2016 - Patient received 2 L of normal saline in the ED - Will decrease IV NS from 125/hr to 80/hr # Metabolic Acidosis worsening, possibly related to diarrhea? as well as some underlying CKD - Will consult nephrology, discussed on phone with Dr Sousa # Worsening Hypocalcemia (6.6) but assymptomatic - Did receive first dose of Prolia one month ago which could be cause - Possibly exacerbated by diarrhea? - is on calcium and Vit D at home, will resume - EKG this am normal - recheck albumin, magnesium, phosphorus, calcium (ionized) - check PTH and Vit D level - Will consult nephrology # Hypomagnesemia (1.4) - will give 2 gm IV and recheck in am # Moderate abdominal ascites, present on admission, active -Seen on CT abdomen and pelvis with contrast -Possibly secondary to liver cirrhosis given nodularity seen on CT of the liver -Reports only minimal alcohol intake - LFTs are within normal limits - Further workup needed? can also be addressed by GI consult # Hyponatremia, present on admission, resolved - Sodium 132 on admission, improved to 138 this morning after IV fluids with normal saline #Hyperglycemia, present on admission, active -Glucose 134 on admission, 106 this morning -hemoglobin A1c still pending # Left kidney exophytic cyst, present on admission, - Decreased in size compared to prior CT abdomen and pelvis Chronic problems # History of Hyperkalemia - Potassium 3.6 - Continue to monitor this given her current acute persistent diarrhea #History of frequent episodes of diarrhea lasted 8 months, - Secondary to supplement her magnesium now stopped #GERD, resolved #Hypertension -We will continue home medication amlodipine 5 mg daily -We will continue home medication of atenolol 12.5 mg daily #Gout, presumed stable - We will hold medication allopurinol now secondary to risk of worsening diarrhea, as well as secondary to possible liver cirrhosis as seen on CT #Osteoporosis, presumed stable - on Prolia #Hyperlipidemia presumed stable - On medication lovastatin 40 mg daily Disposition: Admitted to in patient service with expected length of stay greater than 2 days, secondary to severity of presenting symptoms, treatment plan, complexity of clinical work up, and risk of adverse events. CODE STATUS: Full code PCP: Dr. Pool of [facility] DVT PE prophylaxis SubQ heparin Q8H Contact: No family contacts VTE Prophylaxis: Sub-Q Heparin (Unfractionated) VTE Mechanical Devices: Intermittant Pneumatic CD Resuscitation Status: CPR: Attempt Resuscitation Cornelia Vaughan MD Feb 27, 2017 09:10
[2017-02-27] MEDS: cefTRIAXone Inj 1,000 MG in Dextrose 5% Minibag Plus 50 ML IV SCH (09:54)
[2017-02-27 10:26] LABS: Magnesium 1.4 mg/dL (1.6-2.6)
[2017-02-27] MEDS ORDERED: KCl 40 mEq/D5W 500 mL 40 MEQ in IV Premix 1 EACH IV ONE (11:00)
[2017-02-27] MEDS ORDERED: Magnesium Sulf 4 Gm/100 mL H2O 4 GM in IV Premix 1 EACH IV ONE (11:00)
[2017-02-27] MEDS ORDERED: Magnesium Sulf 2 Gm/50mL Water 2 GM in IV Premix 1 EACH IV ONE (11:00)
[2017-02-27] MEDS: Calcium Carbonate (Oyster Shell) 500 mg Tablet PO SCH (11:30)
[2017-02-27] MEDS: Sodium Bicarb 8.4% Inj 150 MEQ in Dextrose 5% 1,000 ML IV SCH ×2 (11:31→18:43)
--- NOTE | 2017-02-27 12:00 | CONS ---
[address] [address] CONSULTATION REPORT PATIENT: LATRICIA CARTER : 1950 MR#: [id number] ADMIT: 02/25/2017 JOB ID: [id number] DATE OF SERVICE: 02/27/2017 REASON FOR CONSULTATION: Diarrhea. HISTORY OF PRESENT ILLNESS: A pleasant 66-year-old, female with a history of hyperkalemia, GERD resolved, hypertension, gout, osteoporosis, and dyslipidemia presents with diarrhea since February 01. The patient states on February 01 she ate cantaloupe. At that point in time she started having profuse diarrhea 20 episodes per day, nonbloody. If the patient is n.p.o. is unknown whether her diarrhea resolves. The patient states he never had an EGD, but had a colonoscopy on September or October of this year at [facility] which is normal. I have no records. The patient denies family history of colon cancer, inflammatory bowel disease, or celiac disease. The patient did state that she had an episode of diarrhea 8 months ago, which was due to her magnesium medication which was stopped. After that her diarrhea resolved. The patient denies rectal bleeding, nausea, vomiting, hematemesis, abdominal pain, or unintentional weight loss. The patient had a CT abdomen and pelvis that was done without contrast on February 25, 2017 which showed no bowel wall thickening or pneumatosis or perforation. It also stated it may have slightly nodular appearance of the liver suspicious for cirrhosis, but not definitively diagnosed, but the liver size was normal. The patient's platelet count is normal at 171. PAST MEDICAL HISTORY: As stated above. PAST SURGERIES: None. ALLERGIES: 1. TAPE. 2. SULFA. HOME MEDICATIONS: 1. Allopurinol. 2. Amlodipine. 3. Atenolol. 4. Lovastatin. 5. Prolia. 6. as needed. SOCIAL HISTORY: No alcohol. No IV drug use. Former smoker. A half pack per day for 50 years. FAMILY HISTORY: Negative for colon cancer, inflammatory bowel disease, or celiac disease. REVIEW OF SYSTEMS: The patient denies headache, blurred vision. Positive for nausea. No chest pain, shortness of breath, abdominal pain, skin rashes, or joint pain. PHYSICAL EXAMINATION: Vital signs upon presentation: Her temperature is 36.5, pulse of 69, respiratory rate 18, blood pressure 106/69, satting 96% on room air. General: In no acute distress. Head: No scars. Eyes: Anicteric. Throat: Supple. Lungs clear to auscultation bilaterally. Cardiovascular regular rhythm and rate. Abdomen soft, nondistended, nontender. Normal bowel sounds. Extremities show no cyanosis, clubbing, or edema. LABORATORIES: White count 7.9, hemoglobin 10.6, hematocrit 31, platelet count 171. Sodium 140, potassium 3.5, chloride 111, bicarb 13. BUN 18, creatinine 1.1. Glucose 106. Calcium 6.6, phosphorus 2.0, magnesium 1.4, albumin 3.3. Total bili 0.7. AST 40, ALT 15, and alk phos 123. ASSESSMENT AND PLAN: This is a 66-year-old, female with history of hypertension, hyperlipidemia, gout presents with diarrhea since February 01 after eating cantaloupe. Patient's stool studies were positive for [place] virus. Per the literature the [place] virus can shed for up to four weeks after the incubation period. Therefore patient is still probably within the time point in which the patient could still have diarrhea from [place] virus itself, most likely from cantaloupe which the patient ingested per the patient. The patient denies any cruise ships or travel recently. I have gone over at this point in time I would recommend holding off on colonoscopy after discussion with the patient and follow up as an outpatient two weeks after discharge. The patient's bowel movements have been improving from 20 times per day, down to 6 times per day. If the patient continues to have diarrhea during my office visit with her as an outpatient, then I will entertain colonoscopy with biopsy at that point in time. RECOMMENDATIONS: 1. Keep well-hydrated, encouraged hydration. 2. Okay to advance diet to regular diet. 3. Hold off on colonoscopy at this point in time. Follow up in GI clinic in two weeks after discharge. If the patient remains to have diarrhea that has not improved, then we will entertain colonoscopy with biopsy.
--- NOTE | 2017-02-27 15:14 | NUR ---
GI/ACTIVITY Patient denies pain. Diet was advanced as tolerated. Tolerating liquids PO and diet well. Denies nausea. No emesis noted. Denies SOB. Per patient loose stools are lesser as compared to admit. Patient gets up independently to the [facility]. Watery stools continues. Patient is on remote tele at this time for K rider. Per telescope repairer patient is on sinus rhythm; HR-70's. *Critical lab: CA 6.6 Dr. Vaughan made aware. MG-1.4: MG rider was ordered by .
--- NOTE | 2017-02-27 15:37 | CONS ---
[address] [address] CONSULTATION REPORT PATIENT: LATRICIA CARTER : 1950 MR#: [id number] ADMIT: 02/25/2017 JOB ID: [id number] DATE OF SERVICE: 02/27/2017 NEPHROLOGY CONSULTATION: REQUESTING PROVIDER: Cornelia Vaughan MD REASON FOR CONSULTATION: Management of electrolyte disturbance and acute kidney injury. CHIEF COMPLAINT: Watery diarrhea. HISTORY OF PRESENT ILLNESS: This is a very pleasant 66-year-old lady with significant past medical history of stage 3 chronic kidney disease, hypertension and dyslipidemia, who presented to the hospital with ongoing watery diarrhea. The patient reported that the watery diarrhea started almost a month ago, February 01. The stool was watery, nonbloody, nonmucoid. It was also associated with nausea, vomiting, and intermittent fever. The patient was trying to hydrate herself by drinking Pedialyte and fluid at least 60 ounces a day. Last week she had a visit with her PCP and was diagnosed with Norovirus after the stool exam. She stated that cantaloupe and figueroa were contaminated and might cause the diarrhea. Her initial BMP showed sodium of 32, potassium of 3.6, BUN of 39, creatinine 1.76. The patient has received normal saline boluses in the ER and later on switched to saline drip at 250 mL/hour. Her initial blood pressure was 101/62, current blood pressure is about the same. A CAT scan without contrast showed no sign of intestinal obstruction, perforation, bowel thickening, or evidence of pneumatosis. Mild and moderate degree of ascites within the peritoneal space noted. Cirrhosis may be present as a cause of the subtle nodularity along the hepatic capsule or margin. Stool PCR positive for Norovirus. Her UA grew E. coli. Blood culture disease morning reported gram-negative kimani one out of two. Her serum creatinine today came down to 1.16, however bicarb is getting worse at the level of 13. During my visit today the patient feeling better overall, however she still has had multiple episodes of watery diarrhea. She reported that she had history of diarrhea eight months ago related to magnesium supplement. PAST MEDICAL HISTORY: 1. Hypertension diagnosed in 1986. 2. Chronic kidney disease stage 3. The patient has seen Dr. Francisco J Hurley for one and half years regarding chronic kidney disease. 3. Dyslipidemia. 4. Chronic liver disease. Unclear etiology. PAST SURGICAL HISTORY: Denied. SOCIAL HISTORY: Denies current use of alcohol, tobacco, or illicit drugs. States she is a former smoker. FAMILY HISTORY: No kidney disease in the family. REVIEW OF SYSTEMS: Constitutional: No current fever or chills. HEENT: No headaches. No blurred vision. Cardiovascular: No chest pain. No shortness of breath. Pulmonary: No cough. No hemoptysis. GI: As per HPI. Skin: No rashes. No excoriation. Hematology: No active bleeding. No bruises. Endocrine: No polyuria, polydipsia. Neuro: No neurological deficit. HOME MEDICATION: Allopurinol, amlodipine, atenolol, lovastatin, Prolia, omeprazole, vitamin D3, calcium carbonate, vitamin C, albuterol. PHYSICAL EXAMINATION: Vitals: Temperature 36.5, pulse 72, respiratory rate 18, blood pressure 106/69, pulse ox 96% on room air. General appearance: Awake, alert, oriented x3. No acute distress. HEENT: No pallor. No jaundice. No JVD. No lymphadenopathy. No thyroid gland enlargement. Heart: Regular rhythm. Normal S1, S2. No murmurs, rubs, or gallops. Lungs: Clear to auscultation bilaterally. Abdomen: Soft, active bowel sounds. Nontender, nondistended. No hepatosplenomegaly. Extremities: No edema, cyanosis, or clubbing of fingers. LABORATORY: Sodium 140, potassium 3.5, chloride 111, bicarb 13, BUN 18, creatinine 1.16, phosphorus 2.0, magnesium 1.4. Albumin 3.3. Calcium 6.6. ASSESSMENT: 1. Acute kidney injury secondary to prerenal azotemia, improving. 2. Hypovolemic hyponatremia, resolved. 3. Mild hypokalemia. 4. Worsening metabolic acidosis. Her initial anion gap was 17; the current anion gap is 16. The patient has mixed anion gap metabolic acidosis and non-anion gap metabolic acidosis. 5. Hypocalcemia, corrected calcium is 7.16. 6. Hypomagnesemia. 7. Hypophosphatemia. 8. Watery diarrhea secondary to Norovirus 9. E. coli urinary tract infection. 10. Gram-negative kimani bacteremia. PLAN: Will discontinue normal saline. Will start the patient on D5 water plus 3 mL of sodium bicarb 150 mEq run at 150 mL/hour. Replace magnesium. Will give mag sulfate 4 g. I expect that her potassium will go down, especially after we are correcting her metabolic acidosis. I will go ahead and replace potassium using potassium chloride 40 mEq. Will replace phosphorus with K-Phos at 20 millimole x1. Vitamin D25 PTH has been sent; pending for the report. We will repeat her BMP in the morning. We will continue to monitor her blood pressure. We will hold blood pressure medications if the blood pressure below 130/80. Thank you for allowing me to participate in the care of your patient. We will monitor along with you.
[2017-02-27] MEDS ORDERED: Sodium Biphos-Phos 133 mL Enema RECTAL PRN (15:45)
[2017-02-27] MEDS: Alum-Mag Hydrox-Simeth 30 mL Suspension PO PRN (19:47)
[2017-02-28] MEDS: Heparin 5,000 Unit/mL Inj SUBQ SCH ×3 (00:57→17:24)
--- NOTE | 2017-02-28 04:49 | NUR ---
GI/ACTIVITY pt has denied any abdominal pain or N/V this shift. she has been up independently to the [facility] with watery stools throughout the night. she is tolerating her diet well but did ask for heart burn medicine saying that her "first real food" didn't agree with it. she complained of a "sinus headache" this morning and was given tylenol. appears to be effective as pt is now sleeping. care continues.
[2017-02-28 06:31] VITALS: BP 112/68; PULSE 84; RESP 18; O2SAT 98
[2017-02-28 06:55] LABS: Magnesium 2.5 mg/dL (1.6-2.6); Phosphorus 1.6 mg/dL (2.5-4.9)
--- NOTE | 2017-02-28 08:15 | PCM.PNSURG ---
Subjective Date of Service: Feb 28, 2017 Date of Service: Feb 28, 2017 Visit Information: Subjective: no acute events overnight. 2 bm recorded past 24 hours. Pt states she had about 6 since midnight. No bleeding. Postop General: No Complaints Objective Vital Sign- Last 8 Hours Date Time Temp Pulse Resp B/P Pulse Ox O2 Delivery O2 Flow Rate FiO2 02/28/17 06:31 36.9 84 18 112/68 98 Room Air Intake and Output- Last 8 Hour 02/28/17 Cumulative From/Thru 07:00 02/25/17 12:37 - 02/28/17 06:31 Intake Total 1900 ml 28156 ml Output Total 1375 ml 4500 ml Balance 525 ml 6604 ml Intake Oral 400 ml 3597 ml IV Total 1500 ml 7507 ml Output Urine Total 675 ml 1925 ml Stool Total 700 ml 2575 ml # Bowel Movements 6 General: Oriented X3 Neck: Supple Lungs: Clear to Auscultation Heart: Exam Unremarkable Abdomen: Benign, Soft, Non-tender, Non-distended, Normoactive bowel tones Extremities: Distal Pulses Palpable Result Diagram: 02/27/1727 02/28/17 0600 Assessment & Plan Impression 66-year-old, female with history of hypertension, hyperlipidemia, gout presents with diarrhea since February 01 after eating cantaloupe. Patient's stool studies were positive for [place] virus. Per the literature the [place] virus can shed for up to four weeks after the incubation period. Therefore patient is still probably within the time point in which the patient could still have diarrhea from [place] virus itself, most likely from cantaloupe which the patient ingested per the patient. The patient denies any cruise ships or travel recently. I have gone over at this point in time I would recommend holding off on colonoscopy after discussion with the patient and follow up as an outpatient two weeks after discharge. The patient's bowel movements have been improving from 20 times per day, down to 6 times per day. If the patient continues to have diarrhea during my office visit with her as an outpatient, then I will entertain colonoscopy with biopsy at that point in time. RECOMMENDATIONS: 1. Keep well-hydrated, encouraged hydration. 2. Okay to advance diet to regular diet. 3. Hold off on colonoscopy at this point in time. Follow up in GI clinic in two weeks after discharge. Problems: VTE Prophylaxis: Sub-Q Heparin (Unfractionated) Resuscitation Status: CPR: Attempt Resuscitation Rajat Pierce MD Feb 28, 2017 08:15
[2017-02-28] MEDS ORDERED: Potassium Phos (mMol) Inj 30 MMOL in Dextrose 5% 500 ML IV ONE ×2 (08:55→14:00)
[2017-02-28] MEDS: Calcium Carbonate (Oyster Shell) 500 mg Tablet PO SCH ×3 (10:04→20:30)
[2017-02-28] MEDS: Sodium Chloride LOK Flush 10 mL Syringe IVFLUSH SCH ×2 (10:05→16:30)
[2017-02-28 10:11] VITALS: BP 101/62; PULSE 93; RESP 16; O2SAT 96
[2017-02-28 10:13] VITALS: PULSE 87
--- NOTE | 2017-02-28 10:24 | PCM.PNMED ---
Subjective Date of Service Feb 28, 2017 Subjective Still frequent bowel movements, 6 since midnight, but smaller volume. No further abdominal cramping but is having some gas pains. Exam Vital Signs Vital Sign - Last Date Time Temp Pulse Resp B/P Pulse Ox O2 Delivery O2 Flow Rate FiO2 02/28/17 10:13 87 02/28/17 10:11 36.1 16 101/62 96 Room Air Intake and Output 02/27/17 02/27/17 02/28/17 Cumulative From/Thru 15:00 23:00 07:00 02/25/17 12:37 - 02/28/17 06:31 Intake Total 2469 ml 1900 ml 33495 ml Output Total 500 ml 1375 ml 4500 ml Balance 1969 ml 525 ml 6604 ml Intake Oral 1320 ml 400 ml 3597 ml IV Total 1149 ml 1500 ml 7507 ml Output Urine Total 200 ml 675 ml 1925 ml Stool Total 300 ml 700 ml 2575 ml # Bowel Movements 6 Exam General: Alert and oriented, no acute distress Heart: Regular Lungs: Clear anteriorly and laterally Abdomen: Soft, non-tender Extremities: No pedal edema IVs and Medications Medications Reviewed: Medications were reviewed in detail Lab and Diagnostics Result Diagram: 02/27/17 0627 02/28/17 0600 X-Rays, CTs and MRIs Date of Service: 02/25/171918 PROCEDURE: CT ABDOMEN AND PELVIS WITHOUT CONTRAST INDICATIONS: r/o ischemic bowel. FINDINGS: Image quality: Somewhat limited by absence of oral and intravenous contrast. ABDOMEN: Lung bases: Lung bases are clear. Heart size is normal. Solid organs: Liver and spleen are normal in size of the liver margins appear slightly nodular, potentially a manifestation of early cirrhosis. There is perihepatic ascites, mild to in severity. Gallbladder has a small amount of adjacent free fluid. Pancreas is normal in contours. No adrenal nodules. Kidneys are normal in size, without hydronephrosis or nephrolithiasis. Peritoneum and bowel: Unenhanced bowel loops demonstrate normal wall thickness and caliber. No free fluid or air. Nodes and vessels: No retroperitoneal or mesenteric adenopathy by size criteria. Aorta and inferior vena cava are normal in caliber. Miscellaneous: No ventral hernias. PELVIS: Genitourinary: Bladder wall thickness is normal. Miscellaneous: No inguinal hernias or adenopathy. Mild ascites is seen deep within the pelvis. No varices are found. Bones: No suspicious bony lesions. No vertebral body compression fractures. IMPRESSION: There is no bowel wall thickening or evidence of pneumatosis, no sign of intestinal obstruction or perforation. Note is made of a mild to moderate degree of ascites within the peritoneal space but no free air. Cirrhosis may be present as cause of subtle nodularity along the hepatic capsule or margin. Note is made of a small amount of free fluid within the gallbladder fossa, but the gallbladder itself does not appear definitely inflamed. No calcified gallstones are seen. There is a previously present cyst exophytic from the middle third of the left kidney posterolateral cortex, measuring 1.5 cm in dimension and measuring higher than water in density. This structure was previously present and appears even slightly smaller than on the prior examination. It could be further assessed by ultrasound when symptoms have improved. It likely is a proteinaceous cyst given its radiodensity and diminished size over time. Dictated by: Steven Hernández M.D. on 02/25/2017 at 20:15 Approved by: Steven Hernández M.D. on 02/25/2017 at 20:20 Assessment & Plan This is a pleasant 66-year-old female with past medical history of hypertension , hyperlipidemia, and gout who presented to the ED with 1 month history of persistent watery diarrhea, and now one-week history of fevers, chills, rigors, nausea and vomiting clear fluid. Patient tested positive for [place] and was treated conservatively by her PCP. Patient was admitted to the hospital secondary to dehydration and persistent diarrhea. #Acute viral enteritis, present on admission, active -[place] virus confirmed by [facility] and by Stool PCR here -stool C. difficile negative -leukocytosis with WBC 12.7, PMNs 82.8%, lymphs 8.2 percent on admit, 7.9 February 27 am -Infectious disease consulted by the ED, Merchant aware of the patient and recommended stool PCR, and abdominal CT's contrast. -Abdominal pelvic CT with contrast with no evidence of bowel ischemia or perforation. Left kidney exophytic cyst previously seen on prior CT (reviewed on admission by admitting team). -Initially IV replacement fluids with normal saline at 125/hr then 80/hr, changed/DC'd by Dr Sousa February 27 (see below) -MRSA screen pending -Pro calcitonin elevated at 8.05 -Enteric precautions -No antibiotics for this given likely viral source (but also has UTI, see below) -We will avoid antimotility agents for now given patient reports she has been febrile, and out of concern that this may lengthen the infectious disease process -Diarrhea persistent (with electrolyte abnormalities), consulted GI yesterday who feels norovirus could cause symptoms this long and no other eval/rx needed yet - if still diarrhea by mid February then see him as an outpatient for possible colonoscopy # Ecoli UTI with bacteremia - UA with 6-10 WBCs - Urine culture Escherichia coli, sens to all - 1 of 2 blood cultures (1 of 4 bottles) Escherichia coli, sens to all - IV ceftriaxone started February 26, continue for today but could probably change to oral soon to complete 10 day course #Sepsis, acute POA -WBC>12, HR >90 -on admit felt secondary to gastroenteritis and dehydration, but now also UTI with bacteremia -treatment as above #Acute kidney injury, present on admission, resolved. Presumed due to volume depletion - Creatinine elevated at 1.76 on admission, 1.5 next day, then 1.16 and 0.9 this am - Baseline creatinine 1.27 in April 2016 - Patient received 2 L of normal saline in the ED - IVF's as above, currently DC'd except Kphos as below # Metabolic Acidosis, improved today, bicarb now normal - Dr Sousa, nephrology, consulted 02/27 and ordered IVF w bicarb, may have received some but then DC'd because hospital ran out of IV bicarb - recheck labs tomorrow # Worsening Hypocalcemia, assymptomatic - Did receive first dose of Prolia one month ago which could contribute - Possibly exacerbated by diarrhea? - is on calcium and Vit D at home, will resume - EKG 02/27 normal - PTH, ionized calcium, and Vit D level still pending - Dr Sousa, nephrology, consulted 02/27 # Hypokalemia and Hypophosphatemia - Kphos in 500cc D5W this am and recheck labs this afternoon # Hypomagnesemia resolved - 02/27 given 2 gm IV (and then also [address] Sousa) - recheck in am # Moderate abdominal ascites, present on admission, active -Seen on CT abdomen and pelvis with contrast -Possibly secondary to liver cirrhosis given nodularity seen on CT of the liver -Reports only minimal alcohol intake - LFTs initially within normal limits, mildly elevated today, recheck tomorrow - f/u w GI 2 wks after DC and further eval can be done at that time # Normocytic Anemia - initially Hgb 12.5 then 10.4 after IVF - recheck in am # Hyponatremia, present on admission, resolved - Sodium 132 on admission, improved to 138 next morning after IV fluids with normal saline #Hyperglycemia, present on admission -Glucose 134 on admission, since admit am glucoses 106-111 -hemoglobin A1c 5.6 -no rx needed currently # Left kidney exophytic cyst, present on admission, - Decreased in size compared to prior CT abdomen and pelvis Chronic problems # History of Hyperkalemia - Potassium 3.6 - Continue to monitor this given her current acute persistent diarrhea #History of frequent episodes of diarrhea lasted 8 months, - Secondary to supplement her magnesium now stopped #GERD, resolved #Hypertension -We will continue home medication amlodipine 5 mg daily -We will continue home medication of atenolol 12.5 mg daily #Gout, presumed stable - We will hold medication allopurinol now secondary to risk of worsening diarrhea, as well as secondary to possible liver cirrhosis as seen on CT #Osteoporosis, presumed stable - on Prolia #Hyperlipidemia presumed stable - On medication lovastatin 40 mg daily Disposition: Admitted to in patient service with expected length of stay greater than 2 days, secondary to severity of presenting symptoms, treatment plan, complexity of clinical work up, and risk of adverse events. CODE STATUS: Full code PCP: Dr. Pool of [place] DVT PE prophylaxis SubQ heparin Q8H Contact: No family contacts VTE Prophylaxis: Sub-Q Heparin (Unfractionated) VTE Mechanical Devices: Intermittant Pneumatic CD Resuscitation Status: CPR: Attempt Resuscitation Cornelia Vaughan MD Feb 28, 2017 10:24
--- NOTE | 2017-02-28 11:44 | PCM.PNNEPH ---
Subjective Date of Service Feb 28, 2017 Subjective Persistent water diarrhea > 10 times, small volume. No F/C/N/VCP/SOB/AP. Exam Vital Signs Vital Sign - Last Date Time Temp Pulse Resp B/P Pulse Ox O2 Delivery O2 Flow Rate FiO2 02/28/17 10:13 87 02/28/17 10:11 36.1 16 101/62 96 Room Air Intake and Output 02/27/17 02/27/17 02/28/17 Cumulative From/Thru 15:00 23:00 07:00 02/25/17 12:37 - 02/28/17 06:31 Intake Total 2469 ml 1900 ml 38587 ml Output Total 500 ml 1375 ml 4500 ml Balance 1969 ml 525 ml 6604 ml Intake Oral 1320 ml 400 ml 3597 ml IV Total 1149 ml 1500 ml 7507 ml Output Urine Total 200 ml 675 ml 1925 ml Stool Total 300 ml 700 ml 2575 ml # Bowel Movements 6 Exam General appearance: Awake, alert, oriented x3. No acute distress. HEENT: No pallor. No jaundice. No JVD. No lymphadenopathy. No thyroid gland enlargement. Heart: Regular rhythm. Normal S1, S2. No murmurs, rubs, or gallops. Lungs: Clear to auscultation bilaterally. Abdomen: Soft, active bowel sounds. Nontender, nondistended. No hepatosplenomegaly. Extremities: No edema, cyanosis, or clubbing of fingers. Lab and Diagnostics Result Diagram: 02/27/17 0627 02/28/17 0600 X-Rays, CTs and MRIs Date of Service: 02/25/17 191 PROCEDURE: CT ABDOMEN AND PELVIS WITHOUT CONTRAST INDICATIONS: r/o ischemic bowel. FINDINGS: Image quality: Somewhat limited by absence of oral and intravenous contrast. ABDOMEN: Lung bases: Lung bases are clear. Heart size is normal. Solid organs: Liver and spleen are normal in size of the liver margins appear slightly nodular, potentially a manifestation of early cirrhosis. There is perihepatic ascites, mild to in severity. Gallbladder has a small amount of adjacent free fluid. Pancreas is normal in contours. No adrenal nodules. Kidneys are normal in size, without hydronephrosis or nephrolithiasis. Peritoneum and bowel: Unenhanced bowel loops demonstrate normal wall thickness and caliber. No free fluid or air. Nodes and vessels: No retroperitoneal or mesenteric adenopathy by size criteria. Aorta and inferior vena cava are normal in caliber. Miscellaneous: No ventral hernias. PELVIS: Genitourinary: Bladder wall thickness is normal. Miscellaneous: No inguinal hernias or adenopathy. Mild ascites is seen deep within the pelvis. No varices are found. Bones: No suspicious bony lesions. No vertebral body compression fractures. IMPRESSION: There is no bowel wall thickening or evidence of pneumatosis, no sign of intestinal obstruction or perforation. Note is made of a mild to moderate degree of ascites within the peritoneal space but no free air. Cirrhosis may be present as cause of subtle nodularity along the hepatic capsule or margin. Note is made of a small amount of free fluid within the gallbladder fossa, but the gallbladder itself does not appear definitely inflamed. No calcified gallstones are seen. There is a previously present cyst exophytic from the middle third of the left kidney posterolateral cortex, measuring 1.5 cm in dimension and measuring higher than water in density. This structure was previously present and appears even slightly smaller than on the prior examination. It could be further assessed by ultrasound when symptoms have improved. It likely is a proteinaceous cyst given its radiodensity and diminished size over time. Dictated by: Steven Hernández M.D. on 02/25/2017 at 20:15 Approved by: Steven Hernández M.D. on 02/25/2017 at 20:20 Plan Impression ASSESSMENT: 1. Acute kidney injury secondary to prerenal azotemia, resolved. 2. Hypovolemic hyponatremia, resolved. 3. Hypokalemia. 4. Mixed anion gap metabolic acidosis and non-anion gap metabolic acidosis. 5. Hypocalcemia r/o vitD def . Corrected calcium is 8.18. 6. Hypomagnesemia. 7. Hypophosphatemia. 8. Watery diarrhea secondary to Norovirus 9. E. coli urinary tract infection. 10. E.coli bacteremia. 11. Transaminitis ? med related,ceftriaxone. PLAN: D/c bicarb gtt. Replace KPO4 total of 60 mmol today. Pending PTH and vitD level. Increase calcium carbonate to 500 mg TID. Repeat BMP, Mg, PO4 in am. Tova Rivera MD Feb 28, 2017 11:44
[2017-02-28] MEDS: cefTRIAXone Inj 1,000 MG in Dextrose 5% Minibag Plus 50 ML IV SCH (12:00)
[2017-02-28] MEDS: Alum-Mag Hydrox-Simeth 30 mL Suspension PO PRN ×2 (12:05→17:23)
--- NOTE | 2017-02-28 12:30 | NUR ---
Social Work: Readiness for Discharge D: EMR reviewed. Per MD in AM multi-disciplinary rounds, pt is likely to discharge tomorrow. Pt states she will drive her self home via POV or her friend Cortney will provide transport when pt is medically stable and ready to discharge. SW does not anticipate any discharge needs at this time but will continue to follow if needs arise. A: Pt who is independent at baseline P: Per MD in AM multi-disciplinary rounds, pt is likely to discharge tomorrow. Pt states she will drive her self home via POV or her friend Cortney will provide transport when pt is medically stable and ready to discharge. SW does not anticipate any discharge needs at this time but will continue to follow if needs arise. KATY Cates
[2017-02-28 14:28] VITALS: BP 110/70; PULSE 85; RESP 14; O2SAT 96
[2017-02-28 15:07] LABS: Vitamin D, 25-Hydroxy 33.7 ng/mL (30.0-100.0)
--- NOTE | 2017-02-28 18:04 | NUR ---
GI/ACTIVITY Patient's LBM is less per patient. Patient continues to have loose, watery stools; Sometimes mixed with urine. Denies pain. Tolerating liquids PO and he diet fairly. Denies nausea. No emesis noted. Patient complained of heartburn. Maalox PO administered, which was helpful. Denies SOB. Patient has gotten up independently to the [facility] – [place], [place]. Unable to ambulate in the hallway due to frequency of BM. Patient is on remote tele per protocol for K rider. Per quality assurance monitor final patient is on sinus rhythm; HR-80's. *CA- 6.5; K-2.9; PH-1.6. Dr. Vaughan was made aware. New orders for [facility] IV received and was administered.
[2017-02-28 20:00] VITALS: PULSE 90
[2017-02-28] MEDS ORDERED: Promethazine 12.5 mg/50 mL D5W IV PRN ×2 (21:40)
[2017-02-28] MEDS ORDERED: Ondansetron 2 mg/mL 2 mL Inj IVPUSH PRN (21:45)
[2017-02-28 23:47] VITALS: BP 133/68; PULSE 92; RESP 20; O2SAT 96
[2017-03-01] VITALS (7 sets, daily range): BP systolic 110–129; BP diastolic 66–83; PULSE 74–82; RESP 15–18; O2SAT 94–98
[2017-03-01] MEDS: Sodium Chloride LOK Flush 10 mL Syringe IVFLUSH SCH ×3 (00:27→16:04)
[2017-03-01] MEDS: Heparin 5,000 Unit/mL Inj SUBQ SCH ×3 (00:29→15:58)
--- NOTE | 2017-03-01 04:14 | NUR ---
GI/ Activity Pt. continue to have less loose stool. Pt. reported having "restless legs" earlier in shift, but denied any need for anything for it. Pt. did became nauseous around 2200, and Neeraj CHUN paged. Neeraj CHUN ordered Promethazine 12.5mg IV first to be given for nausea, and if was not effective 4 mg IV Zofran. IV Promethazine was not effective, so IV Zofran given which seemed to be effective, as pt. fell asleep afterwards.
[2017-03-01 07:09] LABS: Mean Corpuscular Hemoglobin 30.4 pg (27.0-35.0); Mean Corpuscular Volume 91.4 fL (81-100)
[2017-03-01 07:34] LABS: Magnesium 2.2 mg/dL (1.6-2.6); Phosphorus 3.5 mg/dL (2.5-4.9)
[2017-03-01] MEDS: Calcium Carbonate (Oyster Shell) 500 mg Tablet PO SCH ×3 (08:09→19:40)
--- NOTE | 2017-03-01 08:55 | NUR ---
[facility] signed
[2017-03-01] MEDS: cefTRIAXone Inj 1,000 MG in Dextrose 5% Minibag Plus 50 ML IV SCH (10:10)
--- NOTE | 2017-03-01 10:49 | NUR ---
Colonoscopy Call Dr. Rajat Pierce for any GI questions per Dr Rajat Pierce, Colonoscopy tomorrow, NPO after midnight, Clear liquid diet, Colyte at [address] Norwood aware. patient aware.
[2017-03-01] MEDS: Alum-Mag Hydrox-Simeth 30 mL Suspension PO PRN (13:58)
--- NOTE | 2017-03-01 14:16 | PCM.PNMED ---
Subjective Date of Service Mar 01, 2017 Subjective She is seen today to follow up her colitis and [place] virus condition. She continues to have frequent diarrhea. He exposure to the cantelope which she suspects gave her this condition was 28 days ago. The WBC is 7.2 and the Hgb is 10.9. Exam Vital Signs Vital Sign - Last Date Time Temp Pulse Resp B/P Pulse Ox O2 Delivery O2 Flow Rate FiO2 03/01/17 10:23 80 03/01/17 08:07 36.4 15 117/68 96 Room Air Intake and Output 02/28/17 02/28/17 03/01/17 Cumulative From/Thru 15:00 23:00 07:00 02/25/17 12:37 - 03/01/17 06:25 Intake Total 840 ml 1424 ml 95528 ml Output Total 1100 ml 1800 ml 7400 ml Balance -260 ml -376 ml 5968 ml Intake Oral 840 ml 950 ml 5387 ml IV Total 474 ml 7981 ml Output Urine Total 1100 ml 350 ml 3375 ml Stool Total 2575 ml Urine/Stool Mix 1450 ml 1450 ml # Bowel Movements 3 4 13 Exam Alert and oriented, in NAD. Heart RRR without murmur Lungs: CTAB Abdomen: Soft, not tender, No masses, Bowel sounds normal Ext: No ankle edema. IVs and Medications Medications Reviewed: Medications were reviewed in detail Lab and Diagnostics Result Diagram: 03/01/1762403/01/17624 X-Rays, CTs and MRIs Date of Service: 02/25/171918 PROCEDURE: CT ABDOMEN AND PELVIS WITHOUT CONTRAST INDICATIONS: r/o ischemic bowel. FINDINGS: Image quality: Somewhat limited by absence of oral and intravenous contrast. ABDOMEN: Lung bases: Lung bases are clear. Heart size is normal. Solid organs: Liver and spleen are normal in size of the liver margins appear slightly nodular, potentially a manifestation of early cirrhosis. There is perihepatic ascites, mild to in severity. Gallbladder has a small amount of adjacent free fluid. Pancreas is normal in contours. No adrenal nodules. Kidneys are normal in size, without hydronephrosis or nephrolithiasis. Peritoneum and bowel: Unenhanced bowel loops demonstrate normal wall thickness and caliber. No free fluid or air. Nodes and vessels: No retroperitoneal or mesenteric adenopathy by size criteria. Aorta and inferior vena cava are normal in caliber. Miscellaneous: No ventral hernias. PELVIS: Genitourinary: Bladder wall thickness is normal. Miscellaneous: No inguinal hernias or adenopathy. Mild ascites is seen deep within the pelvis. No varices are found. Bones: No suspicious bony lesions. No vertebral body compression fractures. IMPRESSION: There is no bowel wall thickening or evidence of pneumatosis, no sign of intestinal obstruction or perforation. Note is made of a mild to moderate degree of ascites within the peritoneal space but no free air. Cirrhosis may be present as cause of subtle nodularity along the hepatic capsule or margin. Note is made of a small amount of free fluid within the gallbladder fossa, but the gallbladder itself does not appear definitely inflamed. No calcified gallstones are seen. There is a previously present cyst exophytic from the middle third of the left kidney posterolateral cortex, measuring 1.5 cm in dimension and measuring higher than water in density. This structure was previously present and appears even slightly smaller than on the prior examination. It could be further assessed by ultrasound when symptoms have improved. It likely is a proteinaceous cyst given its radiodensity and diminished size over time. Dictated by: Steven Hernández M.D. on 02/25/2017 at 20:15 Approved by: Steven Hernández M.D. on 02/25/2017 at 20:20 Assessment & Plan This is a pleasant 66-year-old female with past medical history of hypertension , hyperlipidemia, and gout who presented to the ED with 1 month history of persistent watery diarrhea, and now one-week history of fevers, chills, rigors, nausea and vomiting clear fluid. Patient tested positive for [place] and was treated conservatively by her PCP. Patient was admitted to the hospital secondary to dehydration and persistent diarrhea. #Acute viral enteritis, present on admission, active -[place] virus confirmed by [place] lab and by Stool PCR here -stool C. difficile negative -leukocytosis with WBC 12.7, PMNs 82.8%, lymphs 8.2 percent on admit, 7.2 now. -Infectious disease consulted by the ED, Mer[facility] aware of the patient and recommended stool PCR, and abdominal CT's contrast. -Abdominal pelvic CT with contrast with no evidence of bowel ischemia or perforation. Left kidney exophytic cyst previously seen on prior CT (reviewed on admission by admitting team). -Initially IV replacement fluids with normal saline at 125/hr then 80/hr, changed/DC'd by Dr Sousa February 27 (see below) -MRSA screen negative -Pro calcitonin when checked was elevated at 8.05 -Enteric precautions -No antibiotics for this given likely viral source (but also has UTI, see below) -We will avoid antimotility agents for now given patient reports she has been febrile, and out of concern that this may lengthen the infectious disease process -Diarrhea persistent (with electrolyte abnormalities), consulted GI yesterday who feels norovirus could cause symptoms this long but will proceed with bowel prep and colonoscopy tomorrow. # Ecoli UTI with bacteremia - UA with 6-10 WBCs - Urine culture Escherichia coli, sens to all - 1 of 2 blood cultures (1 of 4 bottles) Escherichia coli, sens to all - IV ceftriaxone started February 26, continue for today but could probably change to oral soon to complete 10 day course #Sepsis, acute POA -on admit felt secondary to gastroenteritis and dehydration, but now also UTI with bacteremia -treatment as above #Acute kidney injury, present on admission, resolved. Presumed due to volume depletion - Creatinine elevated at 1.76 on admission, 1.5 next day, then 1.16 and 0.9 this am - Baseline creatinine 1.27 in April 2016 - Patient received 2 L of normal saline in the ED - IVF's as above, currently DC'd except Kphos as below # Metabolic Acidosis, improved today, bicarb now normal - Dr Sousa, nephrology, consulted 02/27 and ordered IVF w bicarb, may have received some but then DC'd because hospital ran out of IV bicarb - recheck labs tomorrow # Worsening Hypocalcemia, assymptomatic - Did receive first dose of Prolia one month ago which could contribute - Possibly exacerbated by diarrhea? - is on calcium and Vit D at home, will resume - EKG 02/27 normal - PTH, ionized calcium 7.1, and Vit D level still pending - Dr Sousa, nephrology, consulted 02/27 # Hypokalemia and Hypophosphatemia - Kphos in 500cc D5W this am and recheck labs this afternoon # Hypomagnesemia resolved - 02/27 given 2 gm IV (and then also [address] Sousa) - recheck in am # Moderate abdominal ascites, present on admission, active -Seen on CT abdomen and pelvis with contrast -Possibly secondary to liver cirrhosis given nodularity seen on CT of the liver -Reports only minimal alcohol intake - LFTs initially within normal limits, mildly elevated today, recheck tomorrow # Normocytic Anemia - initially Hgb 12.5 then 10.4 after IVF - recheck in am # Hyponatremia, present on admission, resolved - Sodium 132 on admission, improved to 138 next morning after IV fluids with normal saline #Hyperglycemia, present on admission -Glucose 134 on admission, since admit am glucoses 106-111 -hemoglobin A1c 5.6 -no rx needed currently # Left kidney exophytic cyst, present on admission, - Decreased in size compared to prior CT abdomen and pelvis Chronic problems # History of Hyperkalemia - Continue to monitor this given her current acute persistent diarrhea #History of frequent episodes of diarrhea lasted 8 months, - Secondary to supplement her magnesium now stopped #GERD, resolved #Hypertension -We will continue home medication amlodipine 5 mg daily -We will continue home medication of atenolol 12.5 mg daily #Gout, presumed stable - We will hold medication allopurinol now secondary to risk of worsening diarrhea, as well as secondary to possible liver cirrhosis as seen on CT #Osteoporosis, presumed stable - on Prolia #Hyperlipidemia presumed stable - On medication lovastatin 40 mg daily CODE STATUS: Full code PCP: Dr. Pool of [place] DVT PE prophylaxis SubQ heparin Q8H Contact: No family contacts VTE Prophylaxis: Sub-Q Heparin (Unfractionated) VTE Mechanical Devices: Intermittant Pneumatic CD Resuscitation Status: CPR: Attempt Resuscitation Tian Norwood MD Mar 01, 2017 11:25
--- NOTE | 2017-03-01 15:28 | NUR ---
Telemetry Acknowledged orders to remove Tele. patient aware. information technology assistant notified. per Tele [id number].
[2017-03-01] MEDS ORDERED: PEG/Electrolytes 4,000 mL Solution PO ONE (16:00)
--- NOTE | 2017-03-01 16:01 | NUR ---
Colyte Colyte started at 1600 per orders.
--- NOTE | 2017-03-01 16:06 | PCM.PNSURG ---
Subjective Date of Service: Mar 01, 2017 Date of Service: Mar 01, 2017 Visit Information: Reason for Visit Diarrhea Ascites Date of Admission: Feb 25, 2017 at 21:28 Hospital Day # 5 Subjective: Patient reports feeling tired today. She had 14 episodes of diarrhea in the last 24 hours she reports no nausea or vomiting. No fever or chills. Her stools continue to be watery dark brown. She has minimal abdominal pain. Postop General: No Shortness of Breath Gastrointestinal: Tolerating Oral Feedings, Diarrhea Pain Management: PO (Tylenol) Objective Vital Sign- Last 8 Hours Date Time Temp Pulse Resp B/P Pulse Ox O2 Delivery O2 Flow Rate FiO2 03/01/17 08:07 36.4 82 15 117/68 96 Room Air 03/01/17 06:25 36.7 74 18 110/66 94 Room Air 03/01/17 02:26 37.0 81 18 126/76 98 Room Air Intake and Output- Last 8 Hour 03/01/17 Cumulative From/Thru 07:00 02/25/17 12:37 - 03/01/17 06:25 Intake Total 1424 ml 83195 ml Output Total 1800 ml 7400 ml Balance -376 ml 5968 ml Intake Oral 950 ml 5387 ml IV Total 474 ml 7981 ml Output Urine Total 350 ml 3375 ml Stool Total 2575 ml Urine/Stool Mix 1450 ml 1450 ml # Bowel Movements 4 13 General: Alert, Oriented X3, Cooperative Neck: Supple Lungs: Clear to Auscultation Heart: Regular Rate/Rhythm Abdomen: Benign, Soft, Non-tender, No masses Extremities: Warm Neuro: Grossly Neurologically Intact Catheters: None Result Diagram: 03/01/17 0625 03/01/17624 Lab & Micro Results: Escherichia coli UTI Escherichia coli bacteremia isolated from one of 4 bottles Stool PCR positive for normal Diagnostics: PROCEDURE: CT ABDOMEN AND PELVIS WITHOUT CONTRAST ([id number]) IMPRESSION: There is no bowel wall thickening or evidence of pneumatosis, no sign of intestinal obstruction or perforation. Note is made of a mild to moderate degree of ascites within the peritoneal space but no free air. Cirrhosis may be present as cause of subtle nodularity along the hepatic capsule or margin. Note is made of a small amount of free fluid within the gallbladder fossa, but the gallbladder itself does not appear definitely inflamed. No calcified gallstones are seen. There is a previously present cyst exophytic from the middle third of the left kidney posterolateral cortex, measuring 1.5 cm in dimension and measuring higher than water in density. This structure was previously present and appears even slightly smaller than on the prior examination. It could be further assessed by ultrasound when symptoms have improved. It likely is a proteinaceous cyst given its radiodensity and diminished size over time. Dictated by: Steven Hernández M.D. on 02/25/2017 at 20:15 Assessment & Plan Impression 66-year-old, female with history of hypertension, hyperlipidemia, gout presents with diarrhea since February 01 after eating cantaloupe. Patient's stool studies were positive for [place] virus. Per the literature the [place] virus can shed for up to four weeks after the incubation period. Therefore patient is still probably within the time point in which the patient could still have diarrhea from [place] virus itself, most likely from cantaloupe which the patient ingested per the patient. The patient denies any cruise ships or travel recently. At this point due to patient's severity of diarrhea I recommend colonoscopy. Though patient has had some improvement in her bowel movements she continues to have greater than 10 episodes of diarrhea daily. Problems: Plan 1. Keep well-hydrated, encouraged hydration. 2. Colonoscopy scheduled for 03/02/17 3. Patient changed to clear liquid diet, nothing by mouth after midnight, Colyte prep starting this afternoon. VTE Prophylaxis: Sub-Q Heparin (Unfractionated) Resuscitation Status: CPR: Attempt Resuscitation copies to: Rajat Pierce MD, Erika R DO Mar 01, 2017 08:45
--- NOTE | 2017-03-01 16:39 | NUR ---
Mentation Alert and oriented X3. Able to make needs known. Continuous enteric precautions due to loose stools and [place] virus. C/o headaches once so far this shift. PRN Tylenol given with effective results. Tele removed per orders. Stable vital signs. per Dr. Rajat cochran colonoscopy tomorrow in the morning. Colyte was started at 1600 and patient is tolerating well so far. Denies chest pain or chest discomfort. no sign and symptoms of respiratory distress noted. Uses bed side commode. 4 loose stools so far this shift per patient report. Denies abdominal pain or discomfort. Neuros WNL. Able to move all four extremities. Call light with in reach for safety. Stable mood. Continue to monitor pain, loose stools, NPO after midnight for colonoscopy, safety, and vital signs.
[2017-03-02] VITALS (9 sets, daily range): BP systolic 101–131; BP diastolic 54–72; PULSE 67–85; RESP 18–20; O2SAT 94–97
[2017-03-02] MEDS: Sodium Chloride LOK Flush 10 mL Syringe IVFLUSH SCH ×3 (00:26→15:38)
[2017-03-02] MEDS: Heparin 5,000 Unit/mL Inj SUBQ SCH ×3 (00:29→15:38)
--- NOTE | 2017-03-02 04:15 | NUR ---
Stool Pt's stool turned clear with no brown last night. No nausea. Will continue to monitor.
[2017-03-02 07:14] LABS: Mean Corpuscular Hemoglobin 31.2 pg (27.0-35.0); Mean Corpuscular Volume 93.3 fL (81-100)
[2017-03-02] MEDS ORDERED: Propofol 10,000 mCg/mL 20 mL Inj ONE (09:31)
[2017-03-02] MEDS ORDERED: Lactated Ringer's 1,000 ML IV ONE (09:44)
[2017-03-02] MEDS ORDERED: Lactated Ringer's 1,000 ML IV SCH (10:20)
--- NOTE | 2017-03-02 10:20 | PCM.HPANE ---
Patient Data Date of Service: Mar 02, 2017 (929) Surgeon Admitting Provider:Cornelia Vaughan MD Attending Provider:Cornelia Vaughan MD Primary Care Physician:Saadia Rizo DO Other Provider: Reason for Visit Diarrhea Ascites DIARRHEA ASCITES Ht/WT & BMI Height (Feet): 5 Height (Inches): 3.00 Weight (Kilograms): 75.800 Body Mass Index 29.00 Allergies Coded Allergies: TAPE (Verified Allergy, Severe, RASH (PAPER [place]), 05/15/16) NSAIDS (Non-Steroidal Anti-Inflamma (Unverified Allergy, Unknown, renal dysfunction, 02/26/17) Sulfa (Sulfonamide Antibiotics) (Verified Allergy, Unknown, Rash, 05/15/16) Past Anesthesia History Anesthesia History: Denies:: Abnormal Airway, Anesthesia Reactions, Difficult Intubation, Fam Anesthesia Reaction, Fam Malignant Hypertherm, Malignant Hyperthermia Diabetes History Hx Diabetes?: No Current Bedside Blood Glucose: 106 MRSA MRSA: No Medications Reported Medications Denosumab (Prolia)60 Mg/1 Ml Hlpjytb16 Mg SQ 02/25/17 Ascorbic Acid (Vitamin C)500 Mg Capsule.er500 Mg PO DAILY 05/15/16 Omeprazole 20 Mg Capsule.dr20 Mg PO DAILY Ref 0 05/15/16 Albuterol Sulfate (Ventolin HFA Inhaler)200 Puff/18 Gm Inhaler1-2 Puffs INH Q4H PRN For Wheezing #1 05/15/16 Cholecalciferol (Vitamin D3) (Vitamin D3)2,000 Unit Capsule6,000 Unit PO DAILY 05/15/16 Calcium Carbonate/Vitamin D3 (Calcium + Vitamin D Tablet)1 Each Tablet2 Each PO DAILY 05/15/16 Amlodipine 5 Mg Tablet5 Mg PO DAILY #90 05/15/16 Allopurinol 300 Mg Cjcbhd384 Mg PO DAILY #30 05/15/16 Lovastatin 40 Mg Oldkuv50 Mg PO DAILY #30 TABLET Ref 0 05/04/15 Atenolol 25 Mg Qhevvq71.5 Mg PO DAILY #30 TABLET Ref 0 05/04/15 Discontinued Reported Medications Raloxifene 60 Mg Bvozgo93 Mg PO DAILY #85 05/15/16 Magnesium Oxide 400 Mg Cgqvhe783 Mg PO DAILY 05/15/16 Discontinued Scripts Dicyclomine (Bentyl)10 Mg Pjezbbp98 Mg PO TID #15 CAPSULE Prov:Oral Gandara PAC 05/15/16 History History of ENT Problems?: Yes HEENT History: Positive for:: Hearing Problem Sinus Problem TMJ Denies:: Abnormal Airway Cataracts Difficult Intubation Dysphagia Glaucoma Denture Type: None Teeth Condition: Within Normal Limits Hx of Heart Problems?: Yes Cardiovascular History: Positive for:: Chest Pain (Normal stress test, normal EF.) Hypertension Denies:: AICD Abdominal Aortic Aneurism Atrial Fibrillation (Hx of tachycardia) Cardiac Surgery Congestive Heart Failure Coronary Artery Disease Edema Heart Murmur Irregular Heartbeat Pacemaker Peripheral Vascular Rheumatic Fever Thrombophlebitis Valvular Heart Disease Other Cardiac History: Hx of Respiratory Problem?: No Respiratory History: Denies:: Asthma COPD Chest Surgery Cough Dyspnea Emphysema Hemoptysis Oxygen Administration Pneumonia Pulmonary Embolism Tuberculosis Use of C-PAP Machine Use of Inhalers / NEBS Hx Neurologic Problems?: Yes Neurological History: Positive for:: Headaches (have HAs with this admission) Denies:: Alzheimer's Disease CVA Dementia Dizziness Multiple Sclerosis Parkinson's Disease Peripheral Neuropathy Seizures TIA Hx of GI Problems?: Yes Gastrointestinal History: Denies:: Cirrhosis Diverticulitis Gall Bladder Disease Gastroesphageal Reflux Gastrointestinal Bleeding Heartburn Hepatitis Hiatal Hernia Liver Disease Rectal Bleeding Hx of Problems?: No Genitourinary History: Denies:: HX of Hemodialysis Kidney Stones HX of Peritoneal Dialysis: No Female Hx: Denies:: Currently Endometriosis Pelvic Inflammatory Problems with Breasts? Skin History: Denies:: History Skin Disorders? 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 Denies:: Blood Transfusions Hx Diabetes: NoBedside Blood Glucose: 106 Hx Alcohol Use: NoHx Substance Use: No Smoking Status: Former Smoker Have You Smoked inLast 12 mo: NoApprox How Many Cigarettes/day: 10 Stop/Bang Treated for Sleep Apnea?: No Do You Have a CPAP Machine?: No S-Snoring: Do You Snore Loudly: No T-Tired: feel tired, fatigued: No O-Obsered: Observed not breath: No P-Blood Pressure: treated: Yes B- Body Mass Index > 35 kg/m2: No A- Age over 50: Yes N- Neck Large Circumference: No G- Gender Male: No ED Total Score: 2 Risk Assessment Category Category 1A: Patient has history of documented sleep apnea, and HAS NOT received any narcotic, sedative or anesthesia administration during this stay. Category 1B: Patient has history of documented sleep apnea, and HAS received any narcotic , sedative or anesthesia administration during this stay Category 2: Patient has SUSPECTED Obstructive Sleep Apnea, and HAS received any narcotic , sedative or anesthesia administration during this stay. Category 3: Patient has SUSPECTED Obstructive Sleep Apnea and HAS NOT received narcotic, sedative or anesthesia administration during this stay. Category 4: Outpatient in Procedural Areas with known sleep apnea or who screen positive for High Risk via the STOP/BANG questionnaire. Exam Exam Vital Signs Vital Signs Date Time Temp Pulse Resp B/P Pulse Ox O2 Delivery O2 Flow Rate FiO2 03/02/17 09:37 77 20 101/58 96 Room Air 03/02/17 09:10 36.1 71 18 118/72 95 Room Air 03/02/17 04:20 36.4 72 18 107/65 94 Room Air General Appearance: Alert, Oriented X3, Cooperative, No Acute Distress HEENT/AIRWAY: MP 2, Neck Movement (FROM), Mouth Opening (3 FBMO) Lungs: Clear to Auscultation Heart: Regular Rate/Rhythm Meds/Labs/Diagnostics Admission Meds Current Medications Polyethylene Glycol/ Electrolytes 4000 ml 4,000 ml ONCE ONCE PO Last administered on 03/01/17 16:00; Start 03/01/17 at 16:00; Stop 03/01/17 at 16:01; Status DC Lactated Ringer's (Lr) 1,000 ml @ ud STK-MED ONCE IV Last administered on 09:44; Start 03/02/17 at 09:44; Stop 03/02/17 at 09:45; Status DC Bedside Blood Glucose: 106 Labs Test 02/25/17 13:40 02/25/17 15:54 02/25/17 16:21 02/25/17 21:25 Hemoglobin A1c 5.6% (4.8-5.6) Procalcitonin 8.05ng/mL (0.00-0.08) Hold Urine Received (Received) Urine Color Yellow (YELLOW) Urine Appearance Hazy (CLEAR,HAZY) Urine pH 5.5 (5.0-8.0) Urine Specific [place] 1.005 (1.003-1.035) Urine Protein 30mg/dL (NEG,TRACE) Urine Glucose (UA) Negativemg/dL (NEGATIVE) Urine Ketones Negativemg/dL (NEGATIVE) Urine Occult Blood Moderate (NEGATIVE) Urine Nitrite Negative (NEGATIVE) Urine Bilirubin Negative (NEGATIVE) Urine Urobilinogen Normalmg/dL (NORMAL) Urine Leukocyte Esterase Small (NEGATIVE) Urine RBC 3-10/hpf (0-2) Urine WBC 6-10/hpf (0-5) Urine Epithelial Cells Moderate/hpf (NONE-MOD) Urine Crystals None seen (NONE SEEN) Urine Bacteria Moderate/hpf (NONE-FEW) Urine Hyaline Casts None/lpf (NONE) Urine Granular Casts None seen (NONE SEEN) Urine Waxy Casts None seen (NONE SEEN) Urine Red Blood Cell Casts None seen (NONE SEEN) Urine White Blood Cell Casts None seen (NONE SEEN) Urine Mucus None seen (None Seen) Urine Trichomonas None seen (NONE SEEN) Urine Yeast None (NONE SEEN) Urinalysis Comment None Urine Culture Reflexed Indicated Lactic Acid Level 1.0mmol/L (0.4-2.0) Test 02/26/17 05:54 02/27/17 09:50 03/01/17 06:25 03/02/17 05:58 Neutrophils (%) (Auto) 73.9% (40-74) Lymphocytes (%) (Auto) 15.1% (14-46) Monocytes (%) (Auto) 8.5% (4-12) Eosinophils (%) (Auto) 2.0% (0-5) Basophils (%) (Auto) 0.2% (0-3) Vitamin D 25-Hydroxy 33.7ng/mL (30.0-100.0) Phosphorus Level 3.5mg/dL (2.5-4.9) Magnesium Level 2.2mg/dL (1.6-2.6) White Blood Count 6.7th/mm3 (3.8-10.1) Red Blood Count 3.56mil/mm3 (3.90-5.20) Hemoglobin 11.1g/dL (12.0-15.6) Hematocrit 33.2% (35.0-46.0) Mean Corpuscular Volume 93.3fL (81-100) Mean Corpuscular Hemoglobin 31.2pg (27.0-35.0) Mean Corpuscular Hemoglobin Concent 33.4% (32.0-37.0) Red Cell Distribution Width 13.9% (12.3-15.4) Platelet Count 250bil/L (150-400) Sodium Level 144mEq/L (134-144) Potassium Level 3.9mEq/L (3.5-5.2) Chloride Level 104mEq/L (97-108) Carbon Dioxide Level 25mmol/L (18-29) Blood Urea Nitrogen 5mg/dL (8-27) Creatinine 0.92mg/dL (0.57-1.00) Estimat Glomerular Filtration Rate 87mL/min (>59) Glucose Level 104mg/dL (60-99) Calcium Level 7.6mg/dL (8.5-10.1) Total Bilirubin 0.4mg/dL (0.0-1.2) Aspartate Amino Transf (AST/SGOT) 94U/L (0-50) Alanine Aminotransferase (ALT/SGPT) 43U/L (0-32) Alkaline Phosphatase 217U/L (25-165) Total Protein 5.3g/dL (6.4-8.4) Albumin 2.9g/dL (3.4-5.0) Plan Impression Patient chart reviewed, patient interviewed and anesthestic plan with risks, benefits, and alternatives discussed, and informed consent obtained. NPO per Anesth. Guidelines: Yes ASA Physical Status: ASA2 Mod Systemic Disease Anesthetic Plan: GA, MAC Bene/Risks/Altern/Consents: Yes HP Complete Prior to Induction: Yes Awais Gilman MD Mar 02, 2017 10:20
--- NOTE | 2017-03-02 10:24 | ENDO ---
[address] [address] ENDOSCOPY PROCEDURE PATIENT: LATRICIA CARTER : 1950 MR#: [id number] ADMIT: 02/25/2017 JOB ID: [id number] DATE OF SERVICE: 03/02/2017 TYPE OF OPERATION: Colonoscopy with biopsy. PREOPERATIVE DIAGNOSIS(ES): Diarrhea. POSTOPERATIVE DIAGNOSIS: Normal colonoscopy status post biopsy. ANESTHESIA: Monitored anesthesia care. COMPLICATIONS: None. BLOOD LOSS: Minimal. DESCRIPTION OF PROCEDURE: After risks and benefits explained to the patient. Informed consent was obtained. After anesthesia administered, colonoscope was inserted from the rectum to the terminal mucosa carefully examined. Prep of the patient was excellent. After procedure was done, the scope was withdrawn and procedure terminated. FINDINGS: Upon inspection of the anus, no masses, hemorrhoids, ulcers, or fissures that were seen. Throughout the entire examination, no polyps, masses, or lesions. Biopsies taken of the terminal ileum and random colon. Retroflexion was normal. IMPRESSIONS: Normal colonoscopy status post biopsy. RECOMMENDATION: 1. Await pathology results. 2. Start clear liquid diet. Advance as tolerated. 3. Follow up in GI clinic in two weeks after discharge.
--- NOTE | 2017-03-02 10:26 | PCM.ANEP1 ---
Post Anesthesia PACU Phase 1 Assessment Vital Signs Vital Signs Date Time Temp Pulse Resp B/P Pulse Ox O2 Delivery O2 Flow Rate FiO2 03/02/17 09:37 77 20 101/58 96 Room Air 03/02/17 09:10 36.1 71 18 118/72 95 Room Air 03/02/17 04:20 36.4 72 18 107/65 94 Room Air Anesthetic Administered: GA Level of Alertness: Awake, talking ARTEAGA's with Equal Strength: Yes Pain: No Pain Scale Score: 2 Nausea or Vomiting: No CV Function & Hydration Stable: Yes Airway Device: N/A Oxygen Delivery: Nasal Cannula Lungs: Clear to Auscultation Dermatome Level: Full Sensation PACU Phase 2 Assessment Complications: No Follow up Care: N/A Patient Instructions Provided: N/A Awais Gilman MD Mar 02, 2017 10:26
[2017-03-02] MEDS: Calcium Carbonate (Oyster Shell) 500 mg Tablet PO SCH ×3 (11:57→20:49)
[2017-03-02] MEDS: cefTRIAXone Inj 1,000 MG in Dextrose 5% Minibag Plus 50 ML IV SCH (11:59)
--- NOTE | 2017-03-02 12:01 | PCM.PNNEPH ---
Subjective Date of Service Mar 02, 2017 Exam Vital Signs Vital Sign - Last Date Time Temp Pulse Resp B/P Pulse Ox O2 Delivery O2 Flow Rate FiO2 03/02/17 10:26 Nasal Cannula 03/02/17 10:20 67 18 108/64 95 03/02/17 10:10 4 03/02/17 09:10 36.1 Intake and Output 03/01/17 03/01/17 03/02/17 Cumulative From/Thru 15:00 23:00 07:00 02/25/17 12:37 - 03/02/17 06:25 Intake Total 110 ml 320 ml 00197 ml Output Total 600 ml 8000 ml Balance 110 ml -280 ml 5798 ml Intake Oral 320 ml 5707 ml IV Total 110 ml 8091 ml Output Urine Total 450 ml 3825 ml Stool Total 2575 ml Urine/Stool Mix 150 ml 1600 ml # Bowel Movements 13 Lab and Diagnostics Result Diagram: 03/02/17 0558 03/02/17 0558 X-Rays, CTs and MRIs Date of Service: 02/25/171918 PROCEDURE: CT ABDOMEN AND PELVIS WITHOUT CONTRAST INDICATIONS: r/o ischemic bowel. FINDINGS: Image quality: Somewhat limited by absence of oral and intravenous contrast. ABDOMEN: Lung bases: Lung bases are clear. Heart size is normal. Solid organs: Liver and spleen are normal in size of the liver margins appear slightly nodular, potentially a manifestation of early cirrhosis. There is perihepatic ascites, mild to in severity. Gallbladder has a small amount of adjacent free fluid. Pancreas is normal in contours. No adrenal nodules. Kidneys are normal in size, without hydronephrosis or nephrolithiasis. Peritoneum and bowel: Unenhanced bowel loops demonstrate normal wall thickness and caliber. No free fluid or air. Nodes and vessels: No retroperitoneal or mesenteric adenopathy by size criteria. Aorta and inferior vena cava are normal in caliber. Miscellaneous: No ventral hernias. PELVIS: Genitourinary: Bladder wall thickness is normal. Miscellaneous: No inguinal hernias or adenopathy. Mild ascites is seen deep within the pelvis. No varices are found. Bones: No suspicious bony lesions. No vertebral body compression fractures. IMPRESSION: There is no bowel wall thickening or evidence of pneumatosis, no sign of intestinal obstruction or perforation. Note is made of a mild to moderate degree of ascites within the peritoneal space but no free air. Cirrhosis may be present as cause of subtle nodularity along the hepatic capsule or margin. Note is made of a small amount of free fluid within the gallbladder fossa, but the gallbladder itself does not appear definitely inflamed. No calcified gallstones are seen. There is a previously present cyst exophytic from the middle third of the left kidney posterolateral cortex, measuring 1.5 cm in dimension and measuring higher than water in density. This structure was previously present and appears even slightly smaller than on the prior examination. It could be further assessed by ultrasound when symptoms have improved. It likely is a proteinaceous cyst given its radiodensity and diminished size over time. Dictated by: Steven Hernández M.D. on 02/25/2017 at 20:15 Approved by: Steven Hernández M.D. on 02/25/2017 at 20:20 Plan Impression Labs reviewed. BMP WNL. Renal service will sign off, please do not hesitate to call with any question or concern. Thank you for allowing me to participate in the care of your patient. Tova Rivera MD Mar 02, 2017 12:01
[2017-03-02] MEDS: Alum-Mag Hydrox-Simeth 30 mL Suspension PO PRN (15:38)
--- NOTE | 2017-03-02 17:04 | NUR ---
Social Work: Readiness for Discharge D: EMR reviewed. Pt is on day 5 of hospitalization for diarrhea, ascites per H&P. Per MD, pt's diet has been advanced to soft for dinner this evening. Pt anticipated to discharge home tomorrow pending advancement of diet and decrease in stool outpt. Pt requested STUDENT SERVICES DIRECTOR consult and STUDENT SERVICES DIRECTOR spoke with pt at bedside regarding discharge plan. Pt has some concerns about her discharge plan and is concerned that she does not have enough support at home. Pt lives at home alone and has not been able to grocery shop recently because of her Norovirus. Pt denies having friends or family in the area. Pt stated that her friend Cortney would not be able to transport her home, pt was anticipating on driving herself home. SW spoke with pt regarding her caregiving needs, including grocery shopping, housekeeping, cleaning, and assistance with cleaning when she has diarrhea. SW explained that these needs are halfway and pt's insurance will not pay for this. Pt stated understanding and was agreeable to pursuing in home caregivers. Pt was provided Senior Resource Guide with the [facility] pages marked for reference. Pt confirms that she is able to use her cell phone to call these organizations and STUDENT SERVICES DIRECTOR encouraged pt to place some calls this evening and leave messages. STUDENT SERVICES DIRECTOR will follow up with pt tomorrow morning to assist with coordination if necessary. Pt is agreeable. Pt anticipated to discharge home with potentially in home caregivers, transport via POV. SW will continue to follow. A: Pt who is independent at baseline P: Per MD in AM multi-disciplinary rounds, pt is likely to discharge tomorrow pending advancement of diet and decrease in diarrhea. Pt has plastic injection mold maker list at bedside to place calls and coordinate in home care. STUDENT SERVICES DIRECTOR will follow up with pt tomorrow morning to assist with coordination if necessary. Pt is agreeable. Pt anticipated to discharge home with potentially in home caregivers, transport via POV. SW will continue to follow. KATY Tubbs
--- NOTE | 2017-03-02 19:09 | PCM.PNMED ---
Subjective Date of Service Mar 02, 2017 Subjective Pt reports improved numbness and now just in groin region. Urinary incontinence has improved. Does note blood tinged urine, not gross blood. Exam Vital Signs Vital Sign - Last Date Time Temp Pulse Resp B/P Pulse Ox O2 Delivery O2 Flow Rate FiO2 03/02/17 17:26 36.4 85 20 118/66 96 Room Air 03/02/17 10:10 4 Intake and Output 03/01/17 03/01/17 03/02/17 Cumulative From/Thru 15:00 23:00 07:00 02/25/17 12:37 - 03/02/17 06:25 Intake Total 110 ml 320 ml 61297 ml Output Total 600 ml 8000 ml Balance 110 ml -280 ml 5798 ml Intake Oral 320 ml 5707 ml IV Total 110 ml 8091 ml Output Urine Total 450 ml 3825 ml Stool Total 2575 ml Urine/Stool Mix 150 ml 1600 ml # Bowel Movements 13 Exam General: Alert and oriented 3, in no apparent distress, requesting something to slow down her diarrhea, beginning in full sentences, HEENT: NC/AT, eyes, PERRLA, EOMI, neck, soft supple, no adenopathy, no JVD, no masses, no thyromegaly, throat mucous membranes pink and moist, no erythema, no exudates, no tonsillar swelling, no uvular deviation, tongue stained with dark brown substance. Lungs: CTAB all estes, no wheezes, no rhonchi, no crackles, no adventitious lung sounds, no use of accessory muscles of respiration, good air movement, good respiratory effort. Heart: Regular rate and rhythm, no murmur, S1-S2 present, no rub, no click, no distant heart sounds, GI: Soft, nontender, nondistended, bowel sounds active, no rebound, no guarding, Genitourinary: No CVA tenderness, no suprapubic tenderness, no Guo catheter Extremities: Pulses equal and symmetric upper extremity radial, no edema Neurologic: Grossly neurologically intact, speaking in full sentences, no focal neurological signs. Skin: Nondiaphoretic, dry, mild tenting present, refill less than 2 seconds Psychiatric: mood and affect are congruent and appropriate. Lymph: no cervical or supraclavicular lymphadenopathy IVs and Medications Medications Reviewed: Medications were reviewed in detail Lab and Diagnostics Result Diagram: 03/02/17 0558 03/02/17 0558 X-Rays, CTs and MRIs Date of Service: 02/25/171918 PROCEDURE: CT ABDOMEN AND PELVIS WITHOUT CONTRAST INDICATIONS: r/o ischemic bowel. FINDINGS: Image quality: Somewhat limited by absence of oral and intravenous contrast. ABDOMEN: Lung bases: Lung bases are clear. Heart size is normal. Solid organs: Liver and spleen are normal in size of the liver margins appear slightly nodular, potentially a manifestation of early cirrhosis. There is perihepatic ascites, mild to in severity. Gallbladder has a small amount of adjacent free fluid. Pancreas is normal in contours. No adrenal nodules. Kidneys are normal in size, without hydronephrosis or nephrolithiasis. Peritoneum and bowel: Unenhanced bowel loops demonstrate normal wall thickness and caliber. No free fluid or air. Nodes and vessels: No retroperitoneal or mesenteric adenopathy by size criteria. Aorta and inferior vena cava are normal in caliber. Miscellaneous: No ventral hernias. PELVIS: Genitourinary: Bladder wall thickness is normal. Miscellaneous: No inguinal hernias or adenopathy. Mild ascites is seen deep within the pelvis. No varices are found. Bones: No suspicious bony lesions. No vertebral body compression fractures. IMPRESSION: There is no bowel wall thickening or evidence of pneumatosis, no sign of intestinal obstruction or perforation. Note is made of a mild to moderate degree of ascites within the peritoneal space but no free air. Cirrhosis may be present as cause of subtle nodularity along the hepatic capsule or margin. Note is made of a small amount of free fluid within the gallbladder fossa, but the gallbladder itself does not appear definitely inflamed. No calcified gallstones are seen. There is a previously present cyst exophytic from the middle third of the left kidney posterolateral cortex, measuring 1.5 cm in dimension and measuring higher than water in density. This structure was previously present and appears even slightly smaller than on the prior examination. It could be further assessed by ultrasound when symptoms have improved. It likely is a proteinaceous cyst given its radiodensity and diminished size over time. Dictated by: Steven Hernándze M.D. on 02/25/2017 at 20:15 Approved by: Steven Hernández M.D. on 02/25/2017 at 20:20 Assessment & Plan This is a pleasant 66-year-old female with past medical history of hypertension , hyperlipidemia, and gout who presented to the ED with 1 month history of persistent watery diarrhea, and now one-week history of fevers, chills, rigors, nausea and vomiting clear fluid. Patient tested positive for [place] and was treated conservatively by her PCP. Patient was admitted to the hospital secondary to dehydration and persistent diarrhea. #Acute viral enteritis, present on admission, active -[place] virus confirmed by [facility] lab and by Stool PCR here -stool C. difficile negative -leukocytosis with WBC 12.7, PMNs 82.8%, lymphs 8.2 percent on admit, 7.2 now. -Infectious disease consulted by the ED, Merchant aware of the patient and recommended stool PCR, and abdominal CT's contrast. -Abdominal pelvic CT with contrast with no evidence of bowel ischemia or perforation. Left kidney exophytic cyst previously seen on prior CT (reviewed on admission by admitting team). -Initially IV replacement fluids with normal saline at 125/hr then 80/hr, changed/DC'd by Dr Sousa February 27 (see below) -MRSA screen negative -Pro calcitonin when checked was elevated at 8.05 -Enteric precautions -No antibiotics for this given likely viral source (but also has UTI, see below) -We will avoid antimotility agents for now given patient reports she has been febrile, and out of concern that this may lengthen the infectious disease process -Diarrhea persistent (with electrolyte abnormalities), consulted GI yesterday who feels norovirus could cause symptoms this long but will proceed with bowel prep and colonoscopy tomorrow. # Ecoli UTI with bacteremia - UA with 6-10 WBCs - Urine culture Escherichia coli, sens to all - 1 of 2 blood cultures (1 of 4 bottles) Escherichia coli, sens to all - IV ceftriaxone started February 26, continue for today but could probably change to oral soon to complete 10 day course #Sepsis, acute POA -on admit felt secondary to gastroenteritis and dehydration, but now also UTI with bacteremia -treatment as above #Acute kidney injury, present on admission, resolved. Presumed due to volume depletion - Creatinine elevated at 1.76 on admission, 1.5 next day, then 1.16 and 0.9 this am - Baseline creatinine 1.27 in April 2016 - Patient received 2 L of normal saline in the ED - IVF's as above, currently DC'd except Kphos as below # Metabolic Acidosis, improved today, bicarb now normal - Dr Sousa, nephrology, consulted 02/27 and ordered IVF w bicarb, may have received some but then DC'd because hospital ran out of IV bicarb - recheck labs tomorrow # Worsening Hypocalcemia, assymptomatic - Did receive first dose of Prolia one month ago which could contribute - Possibly exacerbated by diarrhea? - is on calcium and Vit D at home, will resume - EKG 02/27 normal - PTH, ionized calcium 7.1, and Vit D level still pending - Dr Sousa, nephrology, consulted 02/27 # Hypokalemia and Hypophosphatemia - Kphos in 500cc D5W this am and recheck labs this afternoon # Hypomagnesemia resolved - 02/27 given 2 gm IV (and then also [address] Sousa) - recheck in am # Moderate abdominal ascites, present on admission, active -Seen on CT abdomen and pelvis with contrast -Possibly secondary to liver cirrhosis given nodularity seen on CT of the liver -Reports only minimal alcohol intake - LFTs initially within normal limits, mildly elevated today, recheck tomorrow # Normocytic Anemia - initially Hgb 12.5 then 10.4 after IVF - recheck in am # Hyponatremia, present on admission, resolved - Sodium 132 on admission, improved to 138 next morning after IV fluids with normal saline #Hyperglycemia, present on admission -Glucose 134 on admission, since admit am glucoses 106-111 -hemoglobin A1c 5.6 -no rx needed currently # Left kidney exophytic cyst, present on admission, - Decreased in size compared to prior CT abdomen and pelvis Chronic problems # History of Hyperkalemia - Continue to monitor this given her current acute persistent diarrhea #History of frequent episodes of diarrhea lasted 8 months, - Secondary to supplement her magnesium now stopped #GERD, resolved #Hypertension -We will continue home medication amlodipine 5 mg daily -We will continue home medication of atenolol 12.5 mg daily #Gout, presumed stable - We will hold medication allopurinol now secondary to risk of worsening diarrhea, as well as secondary to possible liver cirrhosis as seen on CT #Osteoporosis, presumed stable - on Prolia #Hyperlipidemia presumed stable - On medication lovastatin 40 mg daily CODE STATUS: Full code PCP: Dr. Pool of [place] DVT PE prophylaxis SubQ heparin Q8H Contact: No family contacts VTE Prophylaxis: Sub-Q Heparin (Unfractionated) VTE Mechanical Devices: Intermittant Pneumatic CD Resuscitation Status: CPR: Attempt Resuscitation Dilan Dang MD Mar 02, 2017 19:08
--- NOTE | 2017-03-02 19:26 | NUR ---
Pain/Heartburn/Bowels/Discharge planning: Patient reported 6/10 Abdominal pain. Tylenol 650mg PO was given. Patient also reported heartburn shortly after lunchtime and Maalox was given. Patient states abdominal pain is a tolerable 2/10 and that she no longer as heartburn. Patient continues to make multiple trips to [facility] and is at times incontinent of stool. Total output for this shift urine and stool mix =1500. Patient voiced concerns about discharging home. States she does not have any support, is unable to go grocery shopping due to diarrhea and does not currently have any food at home. drug department worker was notified and supplied patient with information.
[2017-03-03] MEDS: Heparin 5,000 Unit/mL Inj SUBQ SCH ×2 (00:21→09:28)
[2017-03-03] MEDS: Sodium Chloride LOK Flush 10 mL Syringe IVFLUSH SCH (00:21)
[2017-03-03 04:42] VITALS: BP 127/69; PULSE 75; RESP 18; O2SAT 99
[2017-03-03 05:27] VITALS: PULSE 75; RESP 20; O2SAT 99
--- NOTE | 2017-03-03 05:48 | NUR ---
Diarrhea/ Discharge Planning Pt. continued to have loose stool through out the night. Pt. reported it becomes exacerbated once she eats. Denies abd. pain or nausea. Pt. seemed very fearful of going home. This RN gave some education on what home caregiver services could help her with. This RN encouraged pt. to call the numbers of home caregivers that social services coordinator had given her. Reinforcement needed for education.
--- NOTE | 2017-03-03 09:15 | PCM.PNMED ---
Subjective Date of Service Mar 03, 2017 Subjective Pt tolerated GI Soft diet well without nausea. Still having loose BM. Has been drinking water to keep up with loose BM. Denies fever/chills/abd pain. Exam Vital Signs Vital Sign - Last Date Time Temp Pulse Resp B/P Pulse Ox O2 Delivery O2 Flow Rate FiO2 03/03/17 05:27 75 20 99 Room Air 03/03/17 04:42 36.4 127/69 03/02/17 10:10 4 Intake and Output 03/02/17 03/02/17 03/03/17 Cumulative From/Thru 15:00 23:00 07:00 02/25/17 12:37 - 03/03/17 05:06 Intake Total 100 ml 825 ml 374 ml 58749 ml Output Total 1500 ml 1100 ml 64780 ml Balance 100 ml -675 ml -726 ml 4497 ml Intake Oral 825 ml 374 ml 6906 ml IV Total 100 ml 8191 ml Output Urine Total 3825 ml Stool Total 2575 ml Urine/Stool Mix 1500 ml 1100 ml 4200 ml # Bowel Movements 13 Exam Gen: NAD, AOx3. HEENT: NCAT, PERRLA, EOMI, MMM, sclera anicteric. Neck: Soft, supple, symmetrical, no thyromegaly/JVD/LAD. Resp: CTAB, no R/R/W. CV: RRR, nl S1/S2, no M/R/G, Abd: Soft, (+)inc BS, no guarding/rebound/organomegaly. Ext: +PP, -edema Skin: warm/dry/intact Neuro/Psych: No focal deficits, CN II-XII grossly intact. AAOx3, cooperative , appropriate mood/affect. IVs and Medications Medications Reviewed: Medications were reviewed in detail Lab and Diagnostics Result Diagram: 03/02/1755703/02/1758 X-Rays, CTs and MRIs Date of Service: 02/25/171918 PROCEDURE: CT ABDOMEN AND PELVIS WITHOUT CONTRAST INDICATIONS: r/o ischemic bowel. FINDINGS: Image quality: Somewhat limited by absence of oral and intravenous contrast. ABDOMEN: Lung bases: Lung bases are clear. Heart size is normal. Solid organs: Liver and spleen are normal in size of the liver margins appear slightly nodular, potentially a manifestation of early cirrhosis. There is perihepatic ascites, mild to in severity. Gallbladder has a small amount of adjacent free fluid. Pancreas is normal in contours. No adrenal nodules. Kidneys are normal in size, without hydronephrosis or nephrolithiasis. Peritoneum and bowel: Unenhanced bowel loops demonstrate normal wall thickness and caliber. No free fluid or air. Nodes and vessels: No retroperitoneal or mesenteric adenopathy by size criteria. Aorta and inferior vena cava are normal in caliber. Miscellaneous: No ventral hernias. PELVIS: Genitourinary: Bladder wall thickness is normal. Miscellaneous: No inguinal hernias or adenopathy. Mild ascites is seen deep within the pelvis. No varices are found. Bones: No suspicious bony lesions. No vertebral body compression fractures. IMPRESSION: There is no bowel wall thickening or evidence of pneumatosis, no sign of intestinal obstruction or perforation. Note is made of a mild to moderate degree of ascites within the peritoneal space but no free air. Cirrhosis may be present as cause of subtle nodularity along the hepatic capsule or margin. Note is made of a small amount of free fluid within the gallbladder fossa, but the gallbladder itself does not appear definitely inflamed. No calcified gallstones are seen. There is a previously present cyst exophytic from the middle third of the left kidney posterolateral cortex, measuring 1.5 cm in dimension and measuring higher than water in density. This structure was previously present and appears even slightly smaller than on the prior examination. It could be further assessed by ultrasound when symptoms have improved. It likely is a proteinaceous cyst given its radiodensity and diminished size over time. Dictated by: Steven Hernández M.D. on 02/25/2017 at 20:15 Approved by: Steven Hernández M.D. on 02/25/2017 at 20:20 Assessment & Plan This is a pleasant 66-year-old female with past medical history of hypertension , hyperlipidemia, and gout who presented to the ED with 1 month history of persistent watery diarrhea, and now one-week history of fevers, chills, rigors, nausea and vomiting clear fluid. Patient tested positive for [place] and was treated conservatively by her PCP. Patient was admitted to the hospital secondary to dehydration and persistent diarrhea. #Acute viral enteritis, present on admission, active -[place] virus confirmed by [facility] [place] lab and by Stool PCR here -stool C. difficile negative -leukocytosis with WBC 12.7, PMNs 82.8%, lymphs 8.2 percent on admit, 7.2 now. -Infectious disease consulted by the ED, Merchant aware of the patient and recommended stool PCR, and abdominal CT's contrast. -Abdominal pelvic CT with contrast with no evidence of bowel ischemia or perforation. Left kidney exophytic cyst previously seen on prior CT (reviewed on admission by admitting team). -Initially IV replacement fluids with normal saline at 125/hr then 80/hr, changed/DC'd by Dr Sousa February 27 (see below) -MRSA screen negative -Pro calcitonin when checked was elevated at 8.05 -Enteric precautions -No antibiotics for this given likely viral source (but also has UTI, see below) -We will avoid antimotility agents for now given patient reports she has been febrile, and out of concern that this may lengthen the infectious disease process -Diarrhea persistent (with electrolyte abnormalities), GI consulted- feel norovirus could cause symptoms. s/p 03/02/2017- Normal colonoscopy status post biopsy. - f/u at GI Clinic w/ Rajat Alicea in 2 weeks once pathology back. # Ecoli UTI with bacteremia - UA with 6-10 WBCs - Urine culture Escherichia coli, sens to all - 1 of 2 blood cultures (1 of 4 bottles) Escherichia coli, sens to all - IV ceftriaxone started February 26, changed to oral soon to complete 5 days of 10 day course. #Sepsis, acute POA -on admit felt secondary to gastroenteritis and dehydration, but now also UTI with bacteremia -treatment as above #Acute kidney injury, present on admission, resolved. Presumed due to volume depletion - Creatinine elevated at 1.76 on admission, 1.5 next day, then 1.16 and 0.9. - Baseline creatinine 1.27 in April 2016 - Patient received 2 L of normal saline in the ED - IVF's as above, currently DC'd except Kphos as below. - Pt encouraged to maintain adequate fluid intake. # Metabolic Acidosis, improved today, bicarb now normal, resolved. - Dr Sousa, nephrology, consulted 02/27 and ordered IVF w bicarb, may have received some but then DC'd because hospital ran out of IV bicarb - Resolved. # Worsening Hypocalcemia, assymptomatic, resolved. - Did receive first dose of Prolia one month ago which could contribute - Possibly exacerbated by diarrhea? - is on calcium and Vit D at home, will resume - EKG 02/27 normal - PTH, ionized calcium 7.1, and Vit D level still pending - Dr Sousa, nephrology, consulted 02/27. Resolved. # Hypomagnesemia resolved - 02/27 given 2 gm IV (and then also [address] Sousa) # Moderate abdominal ascites, present on admission, active -Seen on CT abdomen and pelvis with contrast -Possibly secondary to liver cirrhosis given nodularity seen on CT of the liver -Reports only minimal alcohol intake - LFTs initially within normal limits, mildly elevated. Downtrending upon discharge. # Normocytic Anemia - initially Hgb 12.5 then 10.4 after IVF. Hb stable. # Hyponatremia, present on admission, resolved - Sodium 132 on admission, improved to 138 next morning after IV fluids with normal saline #Hyperglycemia, present on admission, Resolved. -Glucose 134 on admission, since admit am glucoses 106-111 -hemoglobin A1c 5.6 # Left kidney exophytic cyst, present on admission, - Decreased in size compared to prior CT abdomen and pelvis. -Once symptoms improve would recommend Renal Ultrasound for Left Renal Cyst. Chronic problems # History of Hyperkalemia - Continue to monitor this given her current acute persistent diarrhea #History of frequent episodes of diarrhea lasted 8 months, - Secondary to supplement her magnesium now stopped #GERD, resolved #Hypertension -We will continue home medication amlodipine 5 mg daily -We will continue home medication of atenolol 12.5 mg daily #Gout, presumed stable - We will hold medication allopurinol now secondary to risk of worsening diarrhea, as well as secondary to possible liver cirrhosis as seen on CT #Osteoporosis, presumed stable - on Prolia #Hyperlipidemia presumed stable - On medication lovastatin 40 mg daily CODE STATUS: Full code PCP: Dr. Pool of [place] DVT PE prophylaxis SubQ heparin Q8H Contact: No family contacts Dispo- GI clinic Rajat Pierce in 2 weeks. Encouraged to maintain adequate fluid intake. Will need to see PCP in 1 weeks, get repeat labs including renal function and electolytes Once symptoms improve would recommend Renal Ultrasound for Left Renal Cyst. Csdf VTE Prophylaxis: Sub-Q Heparin (Unfractionated) VTE Mechanical Devices: Intermittant Pneumatic CD Resuscitation Status: CPR: Attempt Resuscitation Dilan Dang MD Mar 03, 2017 09:15
--- NOTE | 2017-03-03 09:23 | PCM.DIMED ---
Discharge Instructions Date of Service Mar 03, 2017 Dates of Hospitalization Feb 25, 2017 at 21:28 Discharge Diagnosis Discharge Diagnosis #Acute viral enteritis # Ecoli UTI with bacteremia #Sepsis, acute #Acute kidney injury # Moderate abdominal ascites # Left kidney exophytic cyst, present on admission # Metabolic Acidosis # Normocytic Anemia # Hyponatremia # Hyperglycemia # Hypocalcemia # Hypomagnesemia Medication Instructions Additional med instructions GI clinic Rajat Pierce in 2 weeks. Encouraged to maintain adequate fluid intake. Will need to see PCP in 1 weeks, get repeat labs including renal function and electolytes Once symptoms improve would recommend Renal Ultrasound for Left Renal Cyst. Diet Discharge Diet: No restrictions Activity Discharge Activity: No restrictions Patient Instructions Patient Instructions Follow up with GI clinic with Dr. Rajat Pierce in 2 weeks. Call to make appointment. Maintain adequate fluid intake. Will need to see PCP in 1 week, get repeat labs including renal function and electolytes. Once symptoms improve discuss with you PCP about getting a Renal Ultrasound for Left Renal Cyst. Follow-up with PCP in: 1 week Provider: Rajat Pierce MD Follow-up in: 2 weeks Dilan Dang MD Mar 03, 2017 09:23
[2017-03-03] MEDS: Calcium Carbonate (Oyster Shell) 500 mg Tablet PO SCH (09:29)
[2017-03-03] MEDS ORDERED: CEPH500C PO (10:05)
--- NOTE | 2017-03-03 11:20 | NUR ---
Social Work: Multi-disciplinary Rounds/Discharge Data: EMR reviewed. Pt is on day 6 of hospitalization for diarrhea, ascites per H&P. Per multi-disciplinary rounds pt is medically ready for discharge. Pt will follow up in 2 weeks with GI. JUAN LUIS spoke with CASEY Orrdy regarding scheduling of appointment. She will schedule this and enter the information in pt's discharge instructions. JUAN LUIS met with pt at bedside regarding discharge plan and caregivers. Pt was unable to coordinate caregivers last night and felt overwhelmed with the task. KATY called pt's preferred organization of [facility] and coordinated a face to face meeting with Sarah in pt's hospital room to coordinate care. This meeting was confirmed by Christy at [facility] to occur between 11 and 1130. Pt has some mcc and housekeeping needs that need to be addressed in the next few weeks and would like some support. Pt updated on meeting time and agreeable to them arriving to speak with her today. JUAN LUIS saw Sarah arrive at the hospital to meet with pt. MD confirmed that pt is able to return home via POV. Pt confirmed that this is possible as it is a short drive and she feels comfortable driving herself home. Pt to discharge home via POV with [facility]. SW will continue to follow. Assessment: Pt who is independent at baseline who needs supportive care at home. Plan: Pt to discharge home via POV with [facility]. Pt meeting with [facility] at this time. SW will continue to follow. KATY Tubbs Addendum: 03/03/17 at 1632 by SARANYA HAYES JUAN LUIS followed up with pt regarding discharge and visit from [facility]. Pt states the visit did not go well and they are not able to assist her. Pt is upset about this. SW discussed that pt's needs are largely housekeeping in nature and that pt is able to contact housekeeping organizations when she is home. SW explained that pt is medically ready for discharge and she will need to discharge today. Pt is concerned about driving her own vehicle home. SW gladly offered to coordinate a taxi for pt which she was not agreeable to because her vehicle would be left here. Pt did confirm that she has found a friend to buy her groceries. CHIEF SCIENCE OFFICER worked with RN to fax pt's abx script to pt's preferred pharmacy prior to discharge to make things easier for pt. Pt will likely discharge later this evening via POV. Pt is independent in room. SW confirmed pt's follow up appointments of the following: Please see Dr. Rizo ([phone]) on 03/09/17 for a 10:30am check-in time for a 10:40 appointment. Then on 03/14/17 at 12:15 you have an appointment to see Dr. Rajat Pierce ([phone]) in Gastroenterology at [facility] [address], for your 2 week follow-up appointment. No additional discharge needs at this time. Mary Jo Hayes, CHIEF SCIENCE OFFICER
[2017-03-03] MEDS: Alum-Mag Hydrox-Simeth 30 mL Suspension PO PRN (12:42)
--- NOTE | 2017-03-03 13:58 | PCM.DC.MED ---
Discharge Summary Date of Service Mar 03, 2017 Dates of Hospitalization Date of Hospital Admission Feb 25, 2017 at 21:28 Date of Discharge: Mar 03, 2017 Providers: Admitting Physician: Cornelia Vaughan MD Primary Care Physician: Saadia Rizo DO Attending Physician: Cornelia Vaughan MD Diagnosis at Time of Discharge Diagnosis at Time of Discharge #Acute viral enteritis # Ecoli UTI with bacteremia #Sepsis, acute #Acute kidney injury # Moderate abdominal ascites # Left kidney exophytic cyst, present on admission # Metabolic Acidosis # Normocytic Anemia # Hyponatremia # Hyperglycemia # Hypocalcemia # Hypomagnesemia Procedures XRay, CTs & MRIs Date of Service: 02/25/171918 PROCEDURE: CT ABDOMEN AND PELVIS WITHOUT CONTRAST INDICATIONS: r/o ischemic bowel. FINDINGS: Image quality: Somewhat limited by absence of oral and intravenous contrast. ABDOMEN: Lung bases: Lung bases are clear. Heart size is normal. Solid organs: Liver and spleen are normal in size of the liver margins appear slightly nodular, potentially a manifestation of early cirrhosis. There is perihepatic ascites, mild to in severity. Gallbladder has a small amount of adjacent free fluid. Pancreas is normal in contours. No adrenal nodules. Kidneys are normal in size, without hydronephrosis or nephrolithiasis. Peritoneum and bowel: Unenhanced bowel loops demonstrate normal wall thickness and caliber. No free fluid or air. Nodes and vessels: No retroperitoneal or mesenteric adenopathy by size criteria. Aorta and inferior vena cava are normal in caliber. Miscellaneous: No ventral hernias. PELVIS: Genitourinary: Bladder wall thickness is normal. Miscellaneous: No inguinal hernias or adenopathy. Mild ascites is seen deep within the pelvis. No varices are found. Bones: No suspicious bony lesions. No vertebral body compression fractures. IMPRESSION: There is no bowel wall thickening or evidence of pneumatosis, no sign of intestinal obstruction or perforation. Note is made of a mild to moderate degree of ascites within the peritoneal space but no free air. Cirrhosis may be present as cause of subtle nodularity along the hepatic capsule or margin. Note is made of a small amount of free fluid within the gallbladder fossa, but the gallbladder itself does not appear definitely inflamed. No calcified gallstones are seen. There is a previously present cyst exophytic from the middle third of the left kidney posterolateral cortex, measuring 1.5 cm in dimension and measuring higher than water in density. This structure was previously present and appears even slightly smaller than on the prior examination. It could be further assessed by ultrasound when symptoms have improved. It likely is a proteinaceous cyst given its radiodensity and diminished size over time. Dictated by: Steven Hernández M.D. on 02/25/2017 at 20:15 Approved by: Steven Hernández M.D. on 02/25/2017 at 20:20 Brief History She is a pleasant 66y/o F with history of watery clear diarrhea onset February 01 that has persisted till now although reportedly slowing somewhat, with associated intermittent fevers, ache, nausea, and vomitiong clear fluid onset 5 days ago. Patient states that she last vomited about 2 days ago. She states she started spiking fevers around Tuesday of this week and reports 102 fever intermittently since then. The last meal she had was Tuesday consisting of [place] noodles which she was unable to tolerate area and she states she is able to tolerate water only when taken in small amounts. Associated symptoms include chills for the last couple days and rigors, as well as body aches. Patient was diagnosed by her PCP Dr. Mcconnell with [place] virus and this was confirmed by the [facility] labs. Patient states that she is feeling somewhat better since Tuesday of this week however her diarrhea and he needs to cause her distress. She she complains of a raw burning sensation of the rectum from the endless diarrhea. Of note patient has a history of 8 months of diarrhea however that was attributed to her magnesium supplementation which was stopped. After that her diarrhea had resolved. Patient states she no longer takes magnesium. Patient is a retired [employer] employee and lives alone with no family other than an estranged sister who she has no contact with. In the ED patient received 1 L bolus of saline, and maintenance fluids at 250 mL per hour with improvement in patient's blood pressure. Abdominopelvic CT with contrast showed: No bowel wall thickening or evidence of pneumatosis, no sign of intestinal obstruction or perforation. Mild to moderate degree of ascites within the peritoneal space but no free air. Cirrhosis may be present as cause of subtle nodularity along the hepatic capsule or margin. Note is made of a small amount of free fluid within the gallbladder fossa, but the gallbladder itself does not appear definitely inflamed. No calcified gallstones are seen. Stool PCR ordered and pending Initial Vital signs: temperature 36.6, pulse 95, respiratory rate 12, blood pressure 101/62, 97% on room air. Hemogram was significant for a leukocytosis with WBC 12.7, PMNs 82.8%, lymphs 8.2 percent, H/H was 12.5/36.5. Chemistry panel significant for hyponatremia at 132, CO2 15, BUN 39, creatinine 1.76, glucose 134, calcium 8.0, UA was significant for moderate bacteria and 6-10 white blood cells Urine culture pending Hospital Course This is a pleasant 66-year-old female with past medical history of hypertension , hyperlipidemia, and gout who presented to the ED with 1 month history of persistent watery diarrhea, and now one-week history of fevers, chills, rigors, nausea and vomiting clear fluid. Patient tested positive for [place] and was treated conservatively by her PCP. Patient was admitted to the hospital secondary to dehydration and persistent diarrhea. #Acute viral enteritis, present on admission, active -[place] virus confirmed by [facility] and by Stool PCR here -stool C. difficile negative -leukocytosis with WBC 12.7, PMNs 82.8%, lymphs 8.2 percent on admit, 7.2 now. -Infectious disease consulted by the ED, [facility] aware of the patient and recommended stool PCR, and abdominal CT's contrast. -Abdominal pelvic CT with contrast with no evidence of bowel ischemia or perforation. Left kidney exophytic cyst previously seen on prior CT (reviewed on admission by admitting team). -Initially IV replacement fluids with normal saline at 125/hr then 80/hr, changed/DC'd by Dr Sousa February 27 (see below) -MRSA screen negative -Pro calcitonin when checked was elevated at 8.05 -Enteric precautions -No antibiotics for this given likely viral source (but also has UTI, see below) -We will avoid antimotility agents for now given patient reports she has been febrile, and out of concern that this may lengthen the infectious disease process -Diarrhea persistent (with electrolyte abnormalities), GI consulted- feel norovirus could cause symptoms. s/p 03/02/2017- Normal colonoscopy status post biopsy. - f/u at GI Clinic w/ Rajat Alicea in 2 weeks once pathology back. # Ecoli UTI with bacteremia - UA with 6-10 WBCs - Urine culture Escherichia coli, sens to all - 1 of 2 blood cultures (1 of 4 bottles) Escherichia coli, sens to all - IV ceftriaxone started February 26, changed to oral soon to complete 5 days of 10 day course. #Sepsis, acute POA -on admit felt secondary to gastroenteritis and dehydration, but now also UTI with bacteremia -treatment as above #Acute kidney injury, present on admission, resolved. Presumed due to volume depletion - Creatinine elevated at 1.76 on admission, 1.5 next day, then 1.16 and 0.9. - Baseline creatinine 1.27 in April 2016 - Patient received 2 L of normal saline in the ED - IVF's as above, currently DC'd except Kphos as below. - Pt encouraged to maintain adequate fluid intake. # Metabolic Acidosis, improved today, bicarb now normal, resolved. - Dr Sousa, nephrology, consulted 02/27 and ordered IVF w bicarb, may have received some but then DC'd because hospital ran out of IV bicarb - Resolved. # Worsening Hypocalcemia, assymptomatic, resolved. - Did receive first dose of Prolia one month ago which could contribute - Possibly exacerbated by diarrhea? - is on calcium and Vit D at home, will resume - EKG 02/27 normal - PTH, ionized calcium 7.1, and Vit D level still pending - Dr Sousa, nephrology, consulted 02/27. Resolved. # Hypomagnesemia resolved - 02/27 given 2 gm IV (and then also [address] Sousa) # Moderate abdominal ascites, present on admission, active -Seen on CT abdomen and pelvis with contrast -Possibly secondary to liver cirrhosis given nodularity seen on CT of the liver -Reports only minimal alcohol intake - LFTs initially within normal limits, mildly elevated. Downtrending upon discharge. # Normocytic Anemia - initially Hgb 12.5 then 10.4 after IVF. Hb stable. # Hyponatremia, present on admission, resolved - Sodium 132 on admission, improved to 138 next morning after IV fluids with normal saline #Hyperglycemia, present on admission, Resolved. -Glucose 134 on admission, since admit am glucoses 106-111 -hemoglobin A1c 5.6 # Left kidney exophytic cyst, present on admission, - Decreased in size compared to prior CT abdomen and pelvis. -Once symptoms improve would recommend Renal Ultrasound for Left Renal Cyst. Chronic problems # History of Hyperkalemia - Continue to monitor this given her current acute persistent diarrhea #History of frequent episodes of diarrhea lasted 8 months, - Secondary to supplement her magnesium now stopped #GERD, resolved #Hypertension -We will continue home medication amlodipine 5 mg daily -We will continue home medication of atenolol 12.5 mg daily #Gout, presumed stable - We will hold medication allopurinol now secondary to risk of worsening diarrhea, as well as secondary to possible liver cirrhosis as seen on CT #Osteoporosis, presumed stable - on Prolia #Hyperlipidemia presumed stable - On medication lovastatin 40 mg daily CODE STATUS: Full code PCP: Dr. Pool of [facility] DVT PE prophylaxis SubQ heparin Q8H Contact: No family contacts Dispo- GI clinic [facility] Pierce in 2 weeks. Encouraged to maintain adequate fluid intake. Will need to see PCP in 1 weeks, get repeat labs including renal function and electolytes Once symptoms improve would recommend Renal Ultrasound for Left Renal Cyst. Csdf Exam Vital Signs (Last) Date Time Temp Pulse Resp B/P Pulse Ox O2 Delivery O2 Flow Rate FiO2 03/03/17 05:27 75 20 99 Room Air 03/03/17 04:42 36.4 127/69 03/02/17 10:10 4 Test 02/25/17 13:40 02/25/17 15:54 02/25/17 16:21 02/25/17 21:25 Hemoglobin A1c 5.6% (4.8-5.6) Procalcitonin 8.05ng/mL (0.00-0.08) Hold Urine Received (Received) Urine Color Yellow (YELLOW) Urine Appearance Hazy (CLEAR,HAZY) Urine pH 5.5 (5.0-8.0) Urine Specific [place] 1.005 (1.003-1.035) Urine Protein 30mg/dL (NEG,TRACE) Urine Glucose (UA) Negativemg/dL (NEGATIVE) Urine Ketones Negativemg/dL (NEGATIVE) Urine Occult Blood Moderate (NEGATIVE) Urine Nitrite Negative (NEGATIVE) Urine Bilirubin Negative (NEGATIVE) Urine Urobilinogen Normalmg/dL (NORMAL) Urine Leukocyte Esterase Small (NEGATIVE) Urine RBC 3-10/hpf (0-2) Urine WBC 6-10/hpf (0-5) Urine Epithelial Cells Moderate/hpf (NONE-MOD) Urine Crystals None seen (NONE SEEN) Urine Bacteria Moderate/hpf (NONE-FEW) Urine Hyaline Casts None/lpf (NONE) Urine Granular Casts None seen (NONE SEEN) Urine Waxy Casts None seen (NONE SEEN) Urine Red Blood Cell Casts None seen (NONE SEEN) Urine White Blood Cell Casts None seen (NONE SEEN) Urine Mucus None seen (None Seen) Urine Trichomonas None seen (NONE SEEN) Urine Yeast None (NONE SEEN) Urinalysis Comment None Urine Culture Reflexed Indicated Lactic Acid Level 1.0mmol/L (0.4-2.0) Test 02/26/17 05:54 02/27/17 09:50 03/01/17 06:25 03/02/17 05:58 Neutrophils (%) (Auto) 73.9% (40-74) Lymphocytes (%) (Auto) 15.1% (14-46) Monocytes (%) (Auto) 8.5% (4-12) Eosinophils (%) (Auto) 2.0% (0-5) Basophils (%) (Auto) 0.2% (0-3) Calcium (Send out) 6.6mg/dL (8.7-10.3) Ionized Calcium 0.94mmol/L (1.17-1.32) Vitamin D 25-Hydroxy 33.7ng/mL (30.0-100.0) Parathyroid Hormone Interpretation Comment (.) Total Intact Parathyroid Hormone 137pg/mL (15-65) Phosphorus Level 3.5mg/dL (2.5-4.9) Magnesium Level 2.2mg/dL (1.6-2.6) White Blood Count 6.7th/mm3 (3.8-10.1) Red Blood Count 3.56mil/mm3 (3.90-5.20) Hemoglobin 11.1g/dL (12.0-15.6) Hematocrit 33.2% (35.0-46.0) Mean Corpuscular Volume 93.3fL (81-100) Mean Corpuscular Hemoglobin 31.2pg (27.0-35.0) Mean Corpuscular Hemoglobin Concent 33.4% (32.0-37.0) Red Cell Distribution Width 13.9% (12.3-15.4) Platelet Count 250bil/L (150-400) Sodium Level 144mEq/L (134-144) Potassium Level 3.9mEq/L (3.5-5.2) Chloride Level 104mEq/L (97-108) Carbon Dioxide Level 25mmol/L (18-29) Blood Urea Nitrogen 5mg/dL (8-27) Creatinine 0.92mg/dL (0.57-1.00) Estimat Glomerular Filtration Rate 87mL/min (>59) Glucose Level 104mg/dL (60-99) Calcium Level 7.6mg/dL (8.5-10.1) Total Bilirubin 0.4mg/dL (0.0-1.2) Aspartate Amino Transf (AST/SGOT) 94U/L (0-50) Alanine Aminotransferase (ALT/SGPT) 43U/L (0-32) Alkaline Phosphatase 217U/L (25-165) Total Protein 5.3g/dL (6.4-8.4) Albumin 2.9g/dL (3.4-5.0) Discharge Medications Discharge Medications Amlodipine (Amlodipine) 5 Mg Tablet 5 MG PO DAILY (Reported) Ascorbic Acid (Vitamin C) 500 Mg Capsule.er 500 MG PO DAILY (Reported) Atenolol (Atenolol) 25 Mg Tablet 12.5 MG PO DAILY (Reported) Calcium Carbonate/Vitamin D3 (Calcium + Vitamin D Tablet) 1 Each Tablet 2 EACH PO DAILY (Reported) Cephalexin (Cephalexin) 500 Mg Capsule 500 MG PO QID Prescribed by: MARC LEUNG MD Cholecalciferol (Vitamin D3) (Vitamin D3) 2,000 Unit Capsule 6,000 UNIT PO DAILY (Reported) Lovastatin (Lovastatin) 40 Mg Tablet 40 MG PO DAILY (Reported) Omeprazole (Omeprazole) 20 Mg Capsule.dr 20 MG PO DAILY (Reported) As needed Albuterol Sulfate (Ventolin HFA Inhaler) 200 Puff/18 Gm Inhaler 1-2 PUFFS INH Q4H PRN PRN For Wheezing (Reported) Miscellaneous Medications Denosumab (Prolia) 60 Mg/1 Ml Syringe 60 MG SQ (Reported) Additional med instructions GI clinic [facility]at Pierce in 2 weeks. Encouraged to maintain adequate fluid intake. Will need to see PCP in 1 weeks, get repeat labs including renal function and electolytes Once symptoms improve would recommend Renal Ultrasound for Left Renal Cyst. Followup Plan Discharge Diet: No restrictions Discharge Activity: No restrictions Patient Instructions Follow up with GI clinic with Dr. Rajat Pierce in 2 weeks. Call to make appointment. Maintain adequate fluid intake. Will need to see PCP in 1 week, get repeat labs including renal function and electolytes. Once symptoms improve discuss with you PCP about getting a Renal Ultrasound for Left Renal Cyst. Follow-up with PCP in: 1 week Provider: Rajat Pierce MD Follow-up in: 2 weeks Time spent 45 minutes Marc Leung MD Mar 03, 2017 13:58
--- NOTE | 2017-03-03 14:27 | PCM.PNSURG ---
Subjective Date of Service: Mar 03, 2017 Date of Service: Mar 03, 2017 Visit Information: Reason for Visit Diarrhea Ascites Surgery/Surgery Date colonoscopy with biopsy 03/02/2017 Date of Admission: Feb 25, 2017 at 21:28 Hospital Day # 7 Subjective: Patient reports that she is continuing to have profuse diarrhea. She feels generally tired and "drained" she is not having any fever or chills, just not having nausea or vomiting. Postop General: No Shortness of Breath Gastrointestinal: Tolerating Oral Feedings Objective Intake and Output- Last 8 Hour 03/03/17 Cumulative From/Thru 07:00 02/25/17 12:37 - 03/03/17 05:06 Intake Total 374 ml 60344 ml Output Total 1100 ml 23287 ml Balance -726 ml 4497 ml Intake Oral 374 ml 6906 ml IV Total 8191 ml Output Urine Total 3825 ml Stool Total 2575 ml Urine/Stool Mix 1100 ml 4200 ml # Bowel Movements 13 General: Alert, Oriented X3, Cooperative, No Acute Distress Neck: Supple Lungs: Clear to Auscultation Heart: Regular Rate/Rhythm Abdomen: Soft, Non-tender, Non-distended Extremities: Warm Neuro: Grossly Neurologically Intact Catheters: None Result Diagram: 03/02/17 0558 03/02/17 0558 Lab & Micro Results: Patient with Escherichia coli in urine Escherichia coli found in 1/4 blood cultures Stool PCR positive for norovirus Diagnostics: Colonoscopy with biopsy. PREOPERATIVE DIAGNOSIS(ES): Diarrhea. POSTOPERATIVE DIAGNOSIS: Normal colonoscopy status post biopsy. IMPRESSIONS: Normal colonoscopy status post biopsy. RECOMMENDATION: 1. Await pathology results. 2. Start clear liquid diet. Advance as tolerated. 3. Follow up in GI clinic in two weeks after discharge. Rajat Pierce MD 03/02/17 1010 Assessment & Plan Impression 66-year-old, female with history of hypertension, hyperlipidemia, gout presents with diarrhea since February 01 after eating cantaloupe. Patient's stool studies were positive for [place] virus. Per the literature the [place] virus can shed for up to four weeks after the incubation period. Therefore patient is still probably within the time point in which the patient could still have diarrhea from [place] virus itself, most likely from cantaloupe which the patient ingested per the patient. The patient denies any cruise ships or travel recently. At this point due to patient's severity of diarrhea I recommend colonoscopy. Though patient has had some improvement in her bowel movements she continues to have greater than 10 episodes of diarrhea daily. Colonoscopy with biopsy performed yesterday was normal. Patient tolerating liquid diet. Problems: Plan 1. Await pathology results. 2. Continue to advance diet as tolerated. 3. Follow up in GI clinic in two weeks after discharge. VTE Prophylaxis: Sub-Q Heparin (Unfractionated) Resuscitation Status: CPR: Attempt Resuscitation copies to: Rajat Pierce MD, Erika R DO Mar 03, 2017 14:27 Rajat Pierce MD Mar 03, 2017 16:27
[2017-03-03 14:39] VITALS: BP 122/69; PULSE 77; RESP 19; O2SAT 99
--- NOTE | 2017-03-03 15:54 | PATH ---
SURGICAL PATHOLOGY Attending Physician:Rajat Pierce MD CASE STATUS: Signed Out PATIENT NAME: LATRICIA CARTER PID: [id number] : 1950 DATE COLLECTED:03/02/2017 15:21 SPECIMEN: 1: Small Intestine/Bowel, Biopsy 2: Colon, Biopsy CLINICAL HISTORY: 1. TERMINAL ILEUM BXS 2. RANDOM COLON BXS FINAL DIAGNOSIS: 1. Terminal Ileum, Biopsy: Small fragments of small bowel mucosa with no diagnostic abnormality. Negative for dysplasia and malignancy. 2. Random Colon Biopsies: Histologic features suggestive of possible lymphocytic colitis, please see comment. ICD10: K52.89 NOTE: Part 2: Sections demonstrate superficial fragments of colorectal mucosa with intraepithelial lymphocytosis (some regions greater than 20 lymphocytes per 100 epithelial cells), consistent with lymphocytic colitis, in the appropriate clinical context. GROSS DESCRIPTION: 1. Received in formalin, labeled with the patient's name and "terminal ileum biopsy" is one fragment of matias, soft tissue measuring 0.2 x 0.1 x 0.1 cm. The fragment is totally submitted in cassette 1A. 2. Received in formalin, labeled with the patient's name and "random colon biopsies" are four fragments of matias soft tissue ranging in size from 0.1 x 0.1 x 0.1 cm to 0.2 x 0.2 x 0.2 cm. All fragments are totally submitted in cassette 2A. ([id number]) ICD-9 CODES: CPT CODES: 1: 16888 2: 16206 Electronically Signed Out By Manisha Vargas MD [facility] Manisha Vargas MD [facility], [facility], [place] [address] Technical component performed at [facility], [address], [place], [address]
--- NOTE | 2017-03-03 16:41 | NUR ---
DC Pt up ambulating well with steady gait to bathroom. Pt states that she will drive herself home as it is only a few miles and she feels safe doing this. She states that she has a friend who will supervisor picking crew medications at pharmacy as well as groceries. Prescription phoned into [facility] in [place]. All discharge instructions reviewed. Pt states that she has no other questions and that she understands all instructions. Staff to wheel pt to front entrance. Care discontinues
== END 2017-03-03 14:30 | disposition home or self-care (01) | DRG 872 ==
LOC: SED 12:22 → OSC 21:28
PROVIDERS: ADMIT Internal Medicine; ATTEND Internal Medicine
PROC: 0DBE8ZX Excision of Large Intestine, Via Natural or Artificial Opening Endoscopic, Diagnostic (ICD-10-PCS; 2017-03-02)
PROC: 0DBB8ZX Excision of Ileum, Via Natural or Artificial Opening Endoscopic, Diagnostic (ICD-10-PCS; principal; 2017-03-02 09:30)
DX: A41.51 Sepsis due to Escherichia coli [E. coli] (principal); A08.11 Acute gastroenteropathy due to Norwalk agent; N17.9 Acute kidney failure, unspecified; N39.0 Urinary tract infection, site not specified; E87.2 Acidosis; E87.1 Hypo-osmolality and hyponatremia; K21.9 Gastro-esophageal reflux disease without esophagitis; E86.0 Dehydration; M10.9 Gout, unspecified; E78.5 Hyperlipidemia, unspecified; M81.0 Age-related osteoporosis without current pathological fracture; E83.51 Hypocalcemia; E83.42 Hypomagnesemia; R73.9 Hyperglycemia, unspecified; R32 Unspecified urinary incontinence; N18.3 Chronic kidney disease, stage 3 (moderate); I12.9 Hypertensive chronic kidney disease with stage 1 through stage 4 chronic kidney disease, or unspecified chronic kidney disease; Z79.51 Long term (current) use of inhaled steroids; Z87.891 Personal history of nicotine dependence